=== PATIENT | male | born 1945 | race Caucasian/White ===

== ENCOUNTER 2020-06-25 12:56 | Outpatient (RCR) | payer MEDICARE, OTHER, SELFPAY ==
--- NOTE | 2020-06-25 14:23 | PTOPEVAL ---
Thank you for referring Van Valenzuela to [facility].? The patient is scheduled to be seen for therapy? ____x/week for ___ weeks. Please review, sign, date and return this plan of care UNIQUE. I agree with and certify that the following plan of care is medically necessary. Referring Physician Date Admitting Provider: Attending Provider: PHYSICIAN NOT ON STAFF Referring Provider: *PT Outpatient Evaluation Start: 06/25/20 13:10 Freq: Status: Active Protocol: Document 06/25/20 13:10 DILLON (Rec: 06/25/20 14:12 DILLON [email or web address]) Therapy Assessment Status Assessment Status Assessment Status Evaluation Evaluation Information Problem Diagnosis right shoulder osteoarthritis Onset 06/17/20 Subjective Information Pt. reports that he is unsure Query Text:As Reported By Patient/ when his right shoulder pain Family started. He reports that he has also noted weakness, such as with grabbing milk out of the fridge. He reports that right shoulder pain will wake him at night. He states that he has also started to notice left shoulder pain. He states that he was attending therapy in [place], but was getting little progress. He reports that he has trouble reaching his wallet in his back pocket and has had to put the wallet in his front pocket. He reports that his goal remains to decrease his right shoulder pain. Prior Level of Function Activity Level (Last 3 Months) Occupation retired Hand Dominance Right Activity of Daily Living Ability Independent Indoor/Home Mobility Independent Community Mobility Independent Stairs Ability Independent Functional Cognition (Planning, Shopping Independent , Taking Medications) Cooking Yes Cleaning Yes Laundry Yes Shopping Yes Driving Yes Pain Assessment Timing of Pain Assessment Timing of Pain Assessment Pre-Treatment Pain Scale Pain Scale Used Numeric (1 - 10) Self Report Pain Assessment Right Shoulder(s) Reported Pain Level 2 Pain Frequency Intermittent Lowest Pain Intensity 0 Gr
== END 2020-07-09 23:59 | disposition home or self-care (01) ==
LOC: CHSPT 12:56
PROVIDERS: PCP Family Medicine
DX: M19.011 Primary osteoarthritis, right shoulder (principal)
CPT/HCPCS: 97014; 97110; 97140; 97161; G0283

== ENCOUNTER 2022-03-13 14:23 | Observation (INO) | payer MEDICARE, SELFPAY ==
[2022-03-13] VITALS (36 sets, daily range): BP systolic 106–162; BP diastolic 59–84; PULSE 91–112; RESP 16–30; TEMP 37.1–37.9; O2SAT 93–97; BMI 23.2
--- NOTE | ~2022-03-13 | XR_ITS ---
XR chest 1V portable 03/13/2022 15:21 Indication: Confusion. Procedure: AP portable chest Comparison: 04/13/2009 Findings: There is blunting of the right lateral costophrenic recess which may represent a small effu sameer or pleural thickening. There are surgical changes consistent with partial right lung resection. There are subtle infiltrates in the right midlung which may represent atelectasis/scarring or develop ing pneumonia. Impression: 1: Subtle infiltrates right midlung which may represent atelectasis/scarring versus developing pneumo callum. 2: Possible small right pleural effusion versus pleural thickening. Reviewed, dictated and finalized at location A. Impression: 1: Subtle infiltrates right midlung which may represent atelectasis/scarring ve rsus developing pneumonia. 2: Possible small right pleural effusion versus pleural thickening.
--- NOTE | ~2022-03-13 | CT_ITS ---
EXAMINATION: CT brain wo con DATE: 03/13/2022 15:20 INDICATION: Confusion TECHNIQUE: Computed tomography (CT) of the head was performed without intravenous contrast. The dose- length product was 605.33 mGy-cm. Automated exposure control and iterative reconstruction technique w ere employed. COMPARISON: None FINDINGS: Mild generalized atrophy. There are scattered mild periventricular and subcortical white ma tter changes, most likely related to small vessel ischemic disease (microangiopathy). There is a voip network engineer isabelle right lacunar infarction of the caudate nucleus. There is intracranial atherosclerosis. No ventri culomegaly or midline shift. Basilar cisterns are patent. Mild mucosal thickening of the maxillary, e thmoid and frontal sinuses. Mastoids are pneumatized. No acute intracranial hemorrhage, infarction, m ass or mass effect. Midline sagittal images are unremarkable. IMPRESSION: 1. No acute intracranial abnormality. 2: Chronic right lacunar infarction. 3: Chronic age-related findings. Reviewed, dictated and finalized at location A.
--- NOTE | ~2022-03-13 | CT_ITS ---
EXAMINATION: CT diagnostic chest wo con DATE: 03/13/2022 16:46 INDICATION: Confusion TECHNIQUE: Computed tomography (CT) of the chest was performed without intravenous contrast. The dose -length product was 194.15 mGy-cm. Automated exposure control and iterative reconstruction technique were employed. COMPARISON: Chest x-ray dated 03/13/2022 FINDINGS: Borderline heart size. There is right pleural thickening. No thoracic lymphadenopathy. Ther e is atherosclerosis of the aorta and coronary arteries. There is an enlarged lymph node along the ri ght cardiophrenic angle measuring 1.9 x 0.9 cm. There are surgical changes consistent with partial ri ght lung resection. There are linear infiltrates of the right mid and lower lung, most likely postope rative atelectasis/scarring. No pneumothorax. No endobronchial lesions. Mild thoracic spondylosis. IMPRESSION: 1. No acute cardiopulmonary disease. 2: Postoperative changes consistent with partial right lung resection with residual atelectasis/scar ring of the right mid and lower lung. 3: Mild right pleural thickening. 4: Enlarged right cardiophrenic angle lymph node, likely reactive. Reviewed, dictated and finalized at location A. IMPRESSION: 1. No acute cardiopulmonary disease. 2: Postoperative changes consistent with partial right lung resection with res idual atelectasis/scarring of the right mid and lower lung. 3: Mild right pleural thickening. 4: Enlarged right cardiophrenic angle lymph node, likely reactive.
--- NOTE | 2022-03-13 14:45 | ECG_ITS ---
Measurements Intervals [place] Rate: 96 P: 60 LA: 167 QRS: -5 QRSD: 86 T: 38 QT: 325 QTc: 412 Interpretive Statements SINUS RHYTHM BASELINE ARTIFACT- I, II, III, AVR, AVL, AVF, V3-V4 NORMAL ECG Electronically Signed On 03-13-2022 15:24:18 CDT by Merrick Schilling D.O.
[2022-03-13] MEDS: SODIUM CHLORIDE 0.9% IV 1,000 ML 999 ML IV CONT (15:02)
[2022-03-13 15:08] LABS: Base Excess ABG -2.7 mmol/L (0-2); HCO3 ABG 18.8 mmol/L (23-29); Oxygen Content ABG 17.5 %vol (16.0-22.0); Oxygen Saturation ABG 96.1 % (95-97); Oxyhemoglobin 95.2 % (94-100); PCO2 ABG 24.7 mmHg (35-45); PO2 ABG 81.5 mmHg (75-85)
[2022-03-13 15:13] LABS: Basophils Absolute Auto 0.02 K/mm3 (0.00-0.10); Basophils Percent Auto 0.3 % (0.0-1.0); Eosinophils Absolute Auto 0.27 K/mm3 (0.02-0.50); Eosinophils Percent Auto 3.8 % (1.0-6.0); Hematocrit 35.2 % (37.0-46.0); Immature Granulocyte Absolute 0.02 K/mm3 (0.00-0.00); Immature Granulocyte Percent A 0.3 % (0.0-0.0); Immature Platelet Fraction Pct 5.4 % (1.0-7.0); Lymphocytes Percent Auto 4.2 % (18.0-42.0); Mean Corpuscular HGB Conc 34.1 g/dL (32.0-36.0); Mean Corpuscular Hemoglobin 28.4 pg (27.0-31.0); Mean Corpuscular Volume 83.4 fL (78.0-102.0); Mean Platelet Volume 11.8 fl (8.7-11.0); Monocytes Absolute Auto 0.94 K/mm3 (0.10-0.90); Monocytes Percent Auto 13.1 % (2.0-11.0); Neutrophils Absolute Auto 5.7 K/mm3 (1.7-7.2); Neutrophils Percent Auto 78.3 % (50.0-70.0); Platelet Count Result 85 K/mm3 (150-420); Red Blood Count 4.22 M/mm3 (4.70-6.10); Red Cell Distribution Width 13.2 % (11.6-14.4); White Blood Count 7.2 K/mm3 (4.8-10.8)
[2022-03-13 15:34] LABS: Lactic Acid Reflex 0.4 mmol/L (0.4-2.0)
[2022-03-13 15:35] LABS: Troponin I 22.9 ng/L (0.00-60.4)
[2022-03-13 15:41] LABS: Appearance Urine Clear (Clear); Bilirubin Urine 1+ (Negative); Blood Urine Negative (Negative); Glucose Urine UA Negative (Negative); Ketones Urine Trace (Negative); Leukocyte Esterase Ur Negative (Negative); Nitrate Urine Negative (Negative); Protein Urine 2+ (Negative); Specific Grav Ur 1.015 (1.010-1.020); Urobilinogen Urine >=8.0 mg/dL (0.2-1.0)
[2022-03-13 15:43] LABS: Device ROOM AIR; Ethanol < 3 mg/dL (0-6); Modified Allen's Test Pass; Site Drawn RIGHT RADIAL
[2022-03-13 15:50] LABS: Add Urine Microscopic? YES; Color Urine Dark Orange (Yellow)
[2022-03-13 15:51] LABS: Bacteria Urine 1+ /hpf; RBC Urine 0-2 /hpf (0-2); Squamous Epithelial Cell Urine None seen /hpf (Few); WBC Urine 0-3 /hpf (0-3)
[2022-03-13 15:53] LABS: Amphetamine Screen Urine Negative (Negative); Barbiturate Screen Urine Negative (Negative); Benzodiazepines Screen Urine Negative (Negative); Cannabinoid Screen Urine Positive (Negative); Cocaine Screen Urine Negative (Negative); Methadone Screen Urine Negative (Negative); Opiate Screen Urine Negative (Negative); Phencyclidine Screen Urine Negative (Negative)
--- NOTE | 2022-03-13 18:31 | ED.SOB ---
HPI - SOB/Dyspnea General Chief Complaint: Shortness of Breath/Dyspnea Stated Complaint: ambulance Time Seen by Provider: 03/13/22 14:27 Source: patient, EMS and RN notes reviewed Mode of arrival: EMS Limitations: altered mental status History of Present Illness MD elicited complaint: shortness of breath Onset (ago): hour(s) (4) Context: other (pt was found in his car in the sun, partially dressed and confused.) Timing: constant Severity: moderate Exacerbating factors: nothing Relieving factors: nothing Associated symptoms: nausea/vomiting Treatment prior to arrival: none Related Data Home Medications Medication Instructions Recorded Confirmed furosemide 40 mg tablet 40 mg PO DAILY 03/13/22 03/13/22 Allergies Allergy/AdvReac Type Severity Reaction Status Date / Time No Known Allergies Allergy Verified 03/13/22 14:54 Review of Systems Review of Systems: All systems reviewed & are unremarkable except as noted in HPI and below PMFSH Past Medical History Medical History Confusion state UTI (urinary tract infection) Social History Social History Smoking status: Former smoker Exam Const: General: ill appearing Nutritional Appearance: well nourished Orientation/consciousness: patient oriented x3 Limitations: no limitations HENMT: Head: normal to inspection Ears: external ears normal, TM's normal bilaterally and EAC's normal General nose exam: Normal external nose present and Normal nares present Face and sinus: normal facial exam and sinuses nontender Mouth: Yes Normal oral and palatal mucosa present, Yes lip normal and Yes moist mucous membranes Teeth and gingiva: dentition normal Throat: posterior oropharynx normal Eyes: Conjunctivae: conjunctivae normal Pupils: Equal, round and reactive pupils present EOM: EOMs intact bilaterally Neck: Neck: normal visual inspection Chest: Chest palpation & inspection: normal inspection of the chest Resp: Effort & Inspection: normal respiratory effort Auscultation: clear to auscultation bilaterally Cardio: Rate: regular rate Rhythm: regular rhythm GI: GI Palp: Yes Soft to palpation and No Tenderness to palpation present (GI) Auscultation: normal bowel sounds : General: Yes bladder normal to palpation and Yes no CVA tenderness Back/Spine/Pelvis: Back: no CVA tenderness Skin: General skin exam: normal color Rashes: no rashes Wounds: no wounds Neuro: General: patient oriented x3, moves all extremities, no meningeal signs, no focal motor deficits and CN's II-XI intact bilaterally Cranial nerves: Yes Nystagmus not present Other: Pt was confused. See the nurses notes. Extrem: General: normal to inspection and no pedal edema Psych: Affect: Anxious affect present Attitude: cooperative Course Course Emergency Course: Pt was stable in the ED, confusion remained. Reevaluation(s) Date: 03/13/22 Time: 15:20 Vital Signs Vital signs: Vital Signs Temperature 37.9 C H 03/13/22 14:49 Pulse Rate 102 H 03/13/22 14:49 Respiratory Rate 20 03/13/22 14:49 Blood Pressure 162/84 H 03/13/22 14:49 Pulse Oximetry 94 03/13/22 14:49 Oxygen Delivery Room Air 03/13/22 14:49 Temperature 37.9 C H 03/13/22 14:49 Pulse Rate 100 03/13/22 18:00 Respiratory Rate 20 03/13/22 18:00 Blood Pressure 130/82 03/13/22 17:48 Pulse Oximetry 95 03/13/22 18:00 Oxygen Delivery Room Air 03/13/22 14:57 MDM - SOB/Dyspnea Differential Diagnosis Differential diagnosis: Likely community acquired pneumonia and other (altered mental status.) Medical Records Attestation: I reviewed the patient's medical records. Lab Data Attestation: I reviewed the patient's lab results. Result diagrams: 03/13/22 15:05 Labs: Lab Results 03/13/22 03/13/22 03/13/22 Range/Units 15:05 15:05 15:05 WBC 7.2 (4.8-10.8) K/mm3
--- NOTE | 2022-03-13 20:07 | PC.NURSE ---
Friend Meli [phone] - able to provide patient transportation home
--- NOTE | 2022-03-13 20:19 | PC.NURSE ---
pt admitted for observation into room 207. nurse to nurse report completed b previous shift. pt home medications updated prior to transport to second floor.
[2022-03-13] MEDS: SODIUM CHLORIDE 0.9% IV 1,000 ML 100 ML IV CONT (20:39)
--- NOTE | 2022-03-13 20:40 | ADMGEN ---
This patient, Van Valenzuela, was admitted to 2nd Floor Room 207-2. Patient oriented to hospital policies and general routines including ID bracelet, bed and alarms, pain management, procedures, bathroom and other care routines, personal items, smoking policy, room service/diet, and visiting hours. Information on how to activate the Rapid Response Team has been discussed. Patient is encouraged to report perceived risks to care and to ask questions if he does not understand what he is told or what he should do.
[2022-03-13] MEDS: traZODone HCL 50 MG TABLET 100 MG PO (20:57)
[2022-03-13] MEDS: ATORVASTATIN 40 MG TABLET PO (20:57)
[2022-03-13] MEDS: BRIMONIDINE TARTRATE 0.2% OP SOLN 5 ML BTL 1 DROP EACH EYE (22:06)
[2022-03-14] VITALS: BP 134/61; PULSE 71; RESP 18; TEMP 36.8; O2SAT 97
[2022-03-14 04:00] VITALS: BP 163/64; PULSE 88; RESP 16; TEMP 36.6; O2SAT 98
[2022-03-14 05:45] LABS: Hematocrit 33.3 % (37.0-46.0); Hemoglobin 10.9 g/dL (12.4-15.3); Immature Platelet Fraction Pct 5.6 % (1.0-7.0); Mean Corpuscular HGB Conc 32.7 g/dL (32.0-36.0); Mean Corpuscular Hemoglobin 28.1 pg (27.0-31.0); Mean Corpuscular Volume 85.8 fL (78.0-102.0); Mean Platelet Volume 12.7 fl (8.7-11.0); Platelet Count Result 85 K/mm3 (150-420); Red Blood Count 3.88 M/mm3 (4.70-6.10); Red Cell Distribution Width 13.4 % (11.6-14.4); White Blood Count 5.1 K/mm3 (4.8-10.8)
[2022-03-14 05:52] LABS: Anion Gap 9 mmol/L (8-16); Blood Urea Nitrogen 17 mg/dL (7-18); Calcium 8.2 mg/dL (8.5-10.1); Carbon Dioxide 23 mmol/L (21-32); Chloride 106 mmol/L (98-108); Estimated CRCL calculation 46 ml/min; Estimated Glomerular Filt Rate > 60; Glucose 98 mg/dL (70-99); Osmolality Calculated 287 mOsm/kg (285-295); Potassium 3.5 mmol/L (3.5-5.1); Sodium 138 mmol/L (136-145)
[2022-03-14 06:02] LABS: Total Cells Counted 10
[2022-03-14 06:03] LABS: Band Neutrophils Percent 3 % (0-6); Eosinophils Absolute Manual 0.05 K/mm3 (0.02-0.5); Eosinophils Percent Manual 1 % (1-6); Lymphocytes Absolute Manual 0.56 K/mm3 (1.1-4.5); Lymphocytes Percent Manual 11 % (18-44); Metamyelocytes Percent 1 %; Monocytes Absolute Manual 0.66 K/mm3 (0.1-0.90); Monocytes Percent Manual 13 % (3-9); Neutrophils Absolute Manual 3.77 K/mm3 (1.3-6.7); Neutrophils Percent Manual 71 % (46-73); Platelet Estimate Decreased (Adequate)
[2022-03-14] MEDS: BRIMONIDINE TARTRATE 0.2% OP SOLN 5 ML BTL 1 DROP EACH EYE (06:09)
[2022-03-14] MEDS: SODIUM CHLORIDE 0.9% IV 1,000 ML 100 ML IV CONT (06:32)
--- NOTE | 2022-03-14 06:36 | PC.NURSE ---
Grisel Marinelli NP called to obtain a diet order on patient. Orders received and noted.
[2022-03-14 08:00] VITALS: BP 142/64; PULSE 75; RESP 16; TEMP 36.6; O2SAT 97
[2022-03-14] MEDS: hydrALAZINE HCL 25 MG TABLET PO (08:53)
--- NOTE | 2022-03-14 10:25 | PM.SD2 ---
Same Day Admit/Disch: HPI History of Present Illness Chief complaint: ENCEPHELOPATHY UTI Narrative: Van Valenzuela is a 77 year old male [facility] Past Medical History Medical History Confusion state UTI (urinary tract infection) Social History Social History Smoking packs per day: 1 Smoking cigarettes per day: 20.0 Years smoked: 20 Smoking pack-years: 20.00 Smoking status: Former smoker Tobacco type: cigarettes Alcohol intake: never Substance use: current Substance use type: marijuana Other substance usage details: uses marijuana for glaucoma Last use: more than week ago Spiritual care concerns: No Same Day Admit/Disch: Med Pre-admit Medications Home Medications Medication Instructions Recorded Confirmed Type Lactobacillus acidophilus See Rx Instructions .Route .COMPLEX 03/13/22 03/13/22 History atorvastatin 40 mg tablet 40 mg PO HS 03/13/22 03/13/22 History brimonidine 0.2 % eye drops 1 drp EACH EYE Q8H 03/13/22 03/13/22 History budesonide 160 mcg-glycopyr 9 2 inh inhalation BID 03/13/22 03/13/22 History mcg-formot 4.8 mcg/actuation HFA inhaler (Breztri Aerosphere) calcium polycarbophil 625 mg tablet 1,250 mg PO DAILY 03/13/22 03/13/22 History diclofenac sodium 1 % topical gel 2 g topical QID 03/13/22 03/13/22 History dorzolamide-timolol (PF) 2 %-0.5 % 1 drp ophthalmic (eye) BID 03/13/22 03/13/22 History eye drops in a dropperette furosemide 40 mg tablet 40 mg PO DAILY 03/13/22 03/13/22 History hydralazine 25 25 tablet PO TID 03/13/22 03/13/22 History mg-hydrochlorothiazide 25 mg tablet hydrophilic cream See Rx Instructions .Route .COMPLEX 03/13/22 03/13/22 History ketorolac 0.5 % eye drops in a 1 drp EACH EYE Q6H 03/13/22 03/13/22 History dropperette latanoprost 0.005 % eye drops 1 drp EACH EYE QPM 05/29/22 05/29/22 History lisinopril 40 mg tablet 40 mg PO DAILY 03/13/22 03/13/22 History omega-3 fatty acids 1,000 mg PO DAILY 03/13/22 03/13/22 History polyvinyl alcohol 1.4 % eye drops 1 drp EACH EYE QID 03/13/22 03/13/22 History trazodone 100 mg tablet 100 mg PO HS PRN Sleep 03/13/22 03/13/22 History hydralazine 25 mg tablet 25 mg PO BID #60 tabs 03/14/22 Rx nitrofurantoin 100 mg PO Q12H 5 days #10 caps 03/14/22 Rx monohydrate/macrocrystals 100 mg capsule (Macrobid) Exam Narrative: GENERAL Ill-appearing, well-nourished, and in no acute distress. HEAD:Normocephalic, atraumatic. EYES: PERRLA and EOMI. ENT: Nares clear, no rhinorrhea or epistaxis. Mucous membranes moist. NECK: Supple. CHEST: Clear to diminished on left side auscultation. No respiratory distress. HEART: Regular rate and rhythm. Normal peripheral pulses. ABDOMEN: Soft, nontender,round, normal active bowel sounds. EXTREMITIES: Normal range of motion. No edema. SKIN: Warm, dry, no rash. NEURO: No focal deficits. Alert and oriented x3. DS: Data Data Completed and Pending Labs on day of discharge: Labs from last 24 hours 03/14/22 03/14/22 03/13/22 05:37 05:37 15:33 WBC 5.1 RBC 3.88 L Hgb 10.9 L Hct 33.3 L MCV 85.8 MCH 28.1 MCHC 32.7 RDW 13.4 Plt Count 85 L MPV 12.7 H Immature Gran % (Auto) Not Reportable Neut % (Auto) Not Reportable Lymph % (Auto) Not Reportable [place] % (Auto) Not Reportable Eos % (Auto) Not Reportable Baso % (Auto) Not Reportable Lymph # (Auto) Not Reportable [place] # (Auto) Not Reportable Eos # (Auto) Not Reportable Baso # (Auto) Not Reportable Abs Immat Gran (auto) Not Reportable Absolute Neuts (auto) Not Reportable Absolute Nucleated RBC Not Reportable Total Counted 10 Neutrophils % (Manual) 71 Band Neutrophils % 3 Lymphocytes % (Manual) 11 L Monocytes % (Manual) 13 H Eosinophils % (Manual) 1 Metamyelocytes % 1 Nucleated RBC % Not Reportable Abs Ne
[2022-03-14 12:00] VITALS: BP 145/70; PULSE 77; RESP 16; TEMP 36.6; O2SAT 96
--- NOTE | 2022-03-14 15:00 | PC.NURSE ---
Pt discharged to home. VSS, A/O x 3. Discharge instructions given to pt. Medications reviewed, follow up appointment with Dr. Whit Matute discussed, pt to call in AM.
--- NOTE | 2022-03-16 09:07 | PC.NURSE ---
Unable to contact for discharge call back.
== END 2022-03-14 14:50 | disposition home or self-care (01) ==
LOC: CHSED 18:36 → CHS2ND 18:45
PROVIDERS: Nurse Practitioner Family; Admitting Provider Internal Medicine; Emergency Provider Emergency Medicine; PCP Family Medicine; Visit Provider Internal Medicine
DX: N39.0 Urinary tract infection, site not specified (principal); F44.89 Other dissociative and conversion disorders; C61 Malignant neoplasm of prostate; Z87.891 Personal history of nicotine dependence; Z79.899 Other long term (current) drug therapy
CPT/HCPCS: 36415; 36600; 70450; 71045; 71250; 80048; 80307; 81001; 82805; 83605; 84484; 85025; 85055; 93005; 96361; 96365; 99285; A9270; G0378; J0696; J7030

== ENCOUNTER 2022-06-14 15:15 | Outpatient (RCR) | payer MEDICARE, SELFPAY ==
--- NOTE | 2022-06-14 14:49 | PTOPEVAL1 ---
Evaluation Information Assessment Status Evaluation Diagnosis Right Shoulder Pain Subjective Information Pt reports he has had right shoulder pain for several years. He had an injection both in 2020 and Spring 2021. He states the first injection helped for about a year but the second only helped for a few days. He is having difficulty lifting his right arm and lowering it back down. [place] and he was given exercises to do on his own. He reports he did not do the exercises on his own because he did not have the equipment so, his primary care doctor recommended he come to a local physical therapy provider. He notes clicking in his shoulder when reaching overhead and pain as he lowers it down. He is unable to perform yard work and has difficulty with lifting household ite. He is also unable to lay on his right side. He is retired ad right hand dominant. Reported Pain Level Pain Score 7: Self Report Assessment PT Clinical Summary Van Valenzuela presents for evaluation and treatment of right shoulder pain. He has difficulty reaching overhead, lifting, laying on the right side, and performing yard work. He objectively demonstrates decreased and painful right shoulder ROM, decreased right shoulder strength, poor posture, and positive special tests consistent with shoulder impingement and tendonitis. He will benefit from skilled PT to address these physical and functional limitations. Plan of Care Interventions Hot Pack/Cold Pack,Therapeutic Exercise PT Services Indicated Yes Treatment Frequency and 3 times a week for 12 visits Duration These treatments will address the objective and functional deficits as defined above. The patient will be advanced safely and appropriately in order for the patient to progress towards his/her prior level of function. Additional exercises will be introduced and as well as a comprehensive home exercise program upon discharge, if needed, ?to ensure carryover of functional gains achieved in the clinic. This treatment plan has been reviewed and agreement upon by the patient.
== END 2022-07-20 23:59 | disposition home or self-care (01) ==
LOC: CHSPT 15:15
PROVIDERS: PCP Family Medicine; Visit Provider Family Medicine
DX: M25.511 Pain in right shoulder (principal)
CPT/HCPCS: 97110; 97140; 97161

== ENCOUNTER 2022-06-17 07:46 | Outpatient (CLI) | payer MEDICARE, SELFPAY ==
--- NOTE | ~2022-06-17 | CT_ITS ---
EXAMINATION: CT chest abdomen pelvis w con DATE: 06/17/2022 08:52 INDICATION: Shortness of breath. Cancer of the right lung. TECHNIQUE: Computed tomography (CT) of the chest, abdomen, and pelvis was performed with 100 CC Omnip aque 350 intravenous contrast. Automated exposure control and iterative reconstruction technique were employed. Exam dose: 460.73 mGy-cm total exam DLP. COMPARISON: 03/13/2022 CT chest 02/14/2011 CT chest abdomen pelvis FINDINGS: CHEST CT: Normal heart size. Coronary artery calcifications. There is aortic and great vessel calcification but no thoracic aortic aneurysm or dissection. No hilar or mediastinal mass lesion or lymphadenopathy. Status post right partial pneumonectomy. No pulmonary mass lesion or pulmonary infiltrate or consolid ation is detected. ABDOMEN/PELVIS CT: There is diffuse hepatic steatosis. No hepatic, splenic, pancreatic or adrenal space-occupying mass l esion is evident. Occasional right renal cysts including one larger cyst measuring up to 3.5 cm dimension. Severe left renal atrophy with numerous left renal cysts, the largest approximately 3 cm. No urinary tract calculus or hydroureteronephrosis. There is atherosclerotic calcification but normal caliber of the abdominal aorta. There is calcificat ion at the origins of the celiac, superior mesenteric, renal arteries. No intraperitoneal or retroper itoneal or pelvic mass lesion or adenopathy or ascites is detected. Prostate enlargement and mild calcification. There is moderate diffuse thickening of the urinary blad eli wall. Normal appendix. Mild colonic diverticulosis; no CT evidence of diverticulitis. No bowel obstruction, bowel wall thickening, pneumatosis or intraperitoneal free air is detected. Severe degenerative disease in the lower cervical spine. Diffuse idiopathic skeletal hyperostosis of the thoracic spine. There is mild degenerative change of the lumbar spine including degenerative cedillo ges apophyseal joints with associated minimal grade 1 anterolisthesis at L4-5. No suspicious osteolytic or osteoblastic lesions are noted. IMPRESSION: Status post right partial pneumonectomy for lung cancer; no recurrent or metastatic dise ase is noted Hepatic steatosis Severe left renal atrophy Bilateral renal cysts Prostate enlargement Normal appendix Mild colonic diverticulosis; no CT evidence of diverticulitis Reviewed, dictated and finalized at Location [facility]. Reviewed, dictated and finalized at location B. IMPRESSION: Status post right partial pneumonectomy for lung cancer; no recurr ent or metastatic disease is noted Hepatic steatosis Severe left renal atrophy Bilateral renal cysts Prostate enlargement Normal appendix Mild colonic diverticulosis; no CT evidence of diverticulitis
[2022-06-17 08:11] LABS: Estimated Glomerular Filt Rate 58
== END 2022-06-17 07:47 | disposition home or self-care (01) ==
LOC: CHSIMG 07:47
PROVIDERS: PCP Family Medicine
DX: C34.91 Malignant neoplasm of unspecified part of right bronchus or lung (principal)
CPT/HCPCS: 71260; 74177; Q9967

== ENCOUNTER 2022-06-24 11:48 | Outpatient (CLI) | payer MEDICARE, SELFPAY ==
[2022-06-24 12:13] LABS: Immature Reticulocyte Fraction 5.4 % (2.0-16.52); Reticulocyte Hemoglobin Conten 33.7 pg (28.0-35.0); Reticulocyte Percent 1.05 % (0.50-1.50); Reticulocytes Absolute 0.05 M/mm3 (0.02-0.1)
== END 2022-06-24 11:49 | disposition home or self-care (01) ==
LOC: CHSLAB 11:52
PROVIDERS: PCP Family Medicine; Visit Provider Internal Medicine Hematology & Oncology
DX: D69.6 Thrombocytopenia, unspecified (principal)
CPT/HCPCS: 36415; 82668; 85046; 85240; 85290

== ENCOUNTER 2024-05-10 13:25 | Emergency (ER) | payer MEDICARE, SELFPAY ==
--- NOTE | ~2024-05-10 | CT_ITS ---
CT brain wo con Ordering provider: Hua Camargo MD History: 79 years Male with . Fall- Struck top of head, headache/cervical pain . Comparison: March 13, 2022 Technique: CT of the head without contrast. Radiation reduction technique utilized. DLP is 605.33 mGy-cm. FINDINGS: BRAIN PARENCHYMA AND CSF SPACES: Mild leukoaraiosis and diffuse cortical atrophy. Mild atheromatous d isease. No midline shift, mass effect or hemorrhage. The brain parenchyma and CSF spaces are otherwi se normal. VISUALIZED PARANASAL SINUSES: Left maxillary sinus disease. MASTOIDS: Well aerated. BONES: The bones appear intact. SOFT TISSUES: Visualized nasopharynx is normal. Superficial soft tissues are normal. IMPRESSION: No acute intracranial findings. Reviewed, dictated and finalized at location A.
--- NOTE | ~2024-05-10 | XR_ITS ---
XR shoulder RT min 2V Ordering provider: Hua Camargo MD History: . Fall- Rt. shoulder pain . Comparison: None. FINDINGS: BONES: No acute fracture or dislocation. Degenerative changes seen at the insertion of the supraspina tous tendon. JOINT SPACES: The acromioclavicular joint shows osteoarthritic changes. The glenohumeral joint is brittany rowed and shows osteoarthritic changes. SOFT TISSUES: Normal. IMPRESSION: No acute osseous abnormality right shoulder. Reviewed, dictated and finalized at location A.
--- NOTE | ~2024-05-10 | CT_ITS ---
CT cervical spine wo con Ordering provider: Hua Camargo MD History: . Fall- Struck top of head, headache/cervical pain . Comparison: None. Technique: CT of the cervical spine was performed without contrast. Sagittal and coronal reformatted images were also obtained and reviewed. Automated exposure control and iterative reconstruction claudia hnique were employed. The dose-length product was 271.09 mGy-cm. FINDINGS: VERTEBRAE: No subluxation or acute fracture. The occipital condyles are intact. DISC SPACES: Narrowing of the disc spaces C5-C6, C6-C7, C7-T1 and T1-T2. Multilevel facet joint disea se. Multilevel uncovertebral joint osteoarthritic changes. Narrowing of the right intervertebral foramen at C2-C3. Bilateral narrowing from C3-C4. Narrowing of the foramina at the level of C5-C6 and C6-C7. PARASPINOUS SOFT TISSUES: Normal. IMPRESSION: No acute osseous abnormality cervical spine. Reviewed, dictated and finalized at location A.
[2024-05-10 13:25] VITALS: BP 146/67; PULSE 74; RESP 18; TEMP 37.3; O2SAT 97
[2024-05-10 14:00] VITALS: BP 152/66; PULSE 63; RESP 17; O2SAT 99
--- NOTE | 2024-05-10 14:15 | ED.FALL ---
HPI - Fall General Chief Complaint: Fall Stated Complaint: fall; right elbow skin tear Time Seen by Provider: 05/10/24 13:33 Source: patient Mode of arrival: ambulatory Limitations: no limitations History of Present Illness HPI Narrative: Patient is an 79-year-old male with a fall in the front yd ground level. He fell prior to arrival. He injured his head and neck. He was having near-syncope after having dizziness from some dehydration today and getting his eyes dilated at the eye doctor. MD complaint: fall Onset (ago): hour(s) (1) Fall from: standing Fall witnessed: yes, by family Place fall occurred: street Loss of consciousness: unsure Length of LOC: second(s) Prolonged down time: no Symptoms prior to fall: lightheadedness and dizziness Context: other ( Patient got his eyes dilated this morning and was in a car that was hot) Location of injury: head, neck and other ( right shoulder) Location of injury - extremities: Right: shoulder Severity: mild Severity scale (1-10): 2 Quality: sharp and throbbing Associated symptoms (after fall): neck pain Related Data Home Medications Medication Instructions Recorded Confirmed Lactobacillus acidophilus See Rx Instructions .Route .COMPLEX 03/13/22 03/13/22 atorvastatin 40 mg tablet 40 mg PO HS 03/13/22 03/13/22 brimonidine 0.2 % eye drops 1 drp EACH EYE Q8H 03/13/22 03/13/22 budesonide 160 mcg-glycopyr 9 2 inh inhalation BID 03/13/22 03/13/22 mcg-formot 4.8 mcg/actuation HFA inhaler (Breztri Aerosphere) calcium polycarbophil 625 mg tablet 1,250 mg PO DAILY 03/13/22 03/13/22 diclofenac sodium 1 % topical gel 2 g topical QID 03/13/22 03/13/22 dorzolamide-timolol (PF) 2 %-0.5 % 1 drp ophthalmic (eye) BID 03/13/22 03/13/22 eye drops in a dropperette furosemide 40 mg tablet 40 mg PO DAILY 03/13/22 03/13/22 hydrophilic cream See Rx Instructions .Route .COMPLEX 03/13/22 03/13/22 ketorolac 0.5 % eye drops in a 1 drp EACH EYE Q6H 03/13/22 03/13/22 dropperette latanoprost 0.005 % eye drops 1 drp EACH EYE QPM 03/13/22 03/13/22 lisinopril 40 mg tablet 40 mg PO DAILY 03/13/22 03/13/22 omega-3 fatty acids 1,000 mg PO DAILY 03/13/22 03/13/22 polyvinyl alcohol 1.4 % eye drops 1 drp EACH EYE QID 03/13/22 03/13/22 trazodone 100 mg tablet 100 mg PO HS PRN Sleep 03/13/22 03/13/22 Allergies Allergy/AdvReac Type Severity Reaction Status Date / Time No Known Allergies Allergy Verified 05/10/24 13:34 Review of Systems Review of Systems: All systems reviewed & are unremarkable except as noted in HPI and below Constitutional: Constitutional: Reports no additional constitutional complaints Eyes: Eyes: Reports no additional eye complaints ENT: Reports system reviewed and no additional complaints, except as documented Cardiovascular: Cardiovascular: Reports no additional cardiovascular complaints Respiratory: Respiratory: Reports no additional respiratory complaints Gastrointestinal: Gastrointestinal: Reports no additional gastrointestinal complaints Genitourinary: Genitourinary: Reports no additional male genitourinary complaints Musculoskeletal: Musculoskeletal: Reports no additional musculoskeletal complaints Integumentary/Breasts: Skin/Breast: Reports system reviewed and no additional complaints, except as docu Neurologic: Reports system reviewed and no additional complaints, except as documented Psychiatric: Psychiatric: Reports no additional psychiatric complaints Endocrine: Endocrine: Reports no additional endocrine complaints Hematologic/Lymphatic: Hematologic/Lymphatic: Reports no additional hematologic/lymphatic complaints Allergic/Immunologic: Allergic/Immunologic: Reports no additional allergic/immunologic complaints PMF Past Medical History Medical History Confusion state UTI (urinary tract infection) Social History Social History Smoking packs pe
[2024-05-10 14:30] VITALS: BP 156/69; PULSE 59; RESP 17; O2SAT 98
[2024-05-10 15:00] VITALS: BP 149/79; PULSE 53; RESP 16; O2SAT 100
[2024-05-10 15:15] VITALS: BP 156/66; PULSE 58; RESP 16; TEMP 37.2; O2SAT 100
== END 2024-05-10 15:15 | disposition home or self-care (01) ==
PROVIDERS: Emergency Provider Emergency Medicine; PCP Family Medicine
DX: R55 Syncope and collapse (principal); S09.90XA Unspecified injury of head, initial encounter; Z87.891 Personal history of nicotine dependence; W18.30XA Fall on same level, unspecified, initial encounter; Y92.007 Garden or yard of unspecified non-institutional (private) residence as the place of occurrence of the external cause
CPT/HCPCS: 70450; 72125; 73030; 99284

== ENCOUNTER 2024-07-11 00:49 | Emergency (ER) | payer MEDICARE, SELFPAY ==
[2024-07-11] VITALS (11 sets, daily range): BP systolic 136–166; BP diastolic 49–102; PULSE 63–89; RESP 8–26; TEMP 36.8–37.4; O2SAT 95–99
--- NOTE | ~2024-07-11 | CT_ITS ---
EXAMINATION: CT abdomen pelvis w con DATE: 07/11/2024 02:12 INDICATION: Nausea TECHNIQUE: Computed tomography (CT) of the abdomen and pelvis was performed with 100 mL Omnipaque-350 intravenous contrast. Automated exposure control and iterative reconstruction technique were employe d. The dose-length product was 443.26 mGy-cm. COMPARISON: 06/17/2022 FINDINGS: Postoperative change of prior partial right pneumonectomy with suture line along the right middle and lower lobes. Chronic small right pleural effusion. Heart size is normal. No pericardial effusion. Mu ltiple calcified gallstones in the dependent gallbladder which is distended to 4.1 cm maximal diamete r but without evident gallbladder wall thickening or pericholecystic inflammatory stranding to sugges t acute cholecystitis. Liver, pancreas and bilateral adrenal glands are normal. Mass effect mild sple nomegaly measuring 15 cm in craniocaudal length. There are multiple bilateral renal cysts measuring u p to 4.0 cm in maximal diameter at the lower pole of the right kidney. There is severe left renal atr ophy. Bowels including the appendix are normal. Bladder is normal. Prostatomegaly. No free intraperit renee gas or fluid. No pathologically enlarged There is calcified atherosclerosis of the aorta and ma ny of the other arteries. lymphadenopathy. Mild lumbar and lower thoracic spondylosis with bridging o steophytes at multiple levels consistent with diffuse idiopathic skeletal hyperostosis (DISH). IMPRESSION: 1. No acute intra-abdominal/pelvic process. 2. Cholelithiasis. 3. Severe left renal atrophy. 4. Prostatomegaly. 5. Chronic small right pleural effusion with change of prior partial right pneumonectomy. Reviewed, dictated and finalized at location A. IMPRESSION: 1. No acute intra-abdominal/pelvic process. 2. Cholelithiasis. 3. Severe left renal atrophy. 4. Prostatomegaly. 5. Chronic small right pleural effusion with change of prior partial right pneu monectomy.
--- NOTE | 2024-07-11 00:58 | ECG_ITS ---
Test Date: 2024-07-11 01:25:53 Measurements Intervals [place] Rate: 54 P: 50 ID: [id number] QRS: 22 QRSD: 84 T: 60 QT: 410 QTc: 392 Interpretive Statements SINUS BRADYCARDIA WITH OCCASIONAL SUPRAVENTRICULAR PREMATURE COMPLEXES BASELINE ARTIFACT- I, II, III, AVR, AVL, AVF BORDERLINE ECG No previous ECG available for comparison Electronically Signed On 07-11-2024 05:37:00 CDT by Merrick Schilling D.O.
--- NOTE | 2024-07-11 00:58 | ED.ABDPAIN ---
HPI - Abdominal Pain General Chief Complaint: Nausea/Vomiting/Diarrhea Stated Complaint: abd pain nausea Time Seen by Provider: 07/11/24 00:57 Source: patient and EMS Mode of arrival: EMS Limitations: no limitations History of Present Illness HPI narrative: 79 YEARS OLD WHITE MALE CAME TO THE ED BY AMBULANCE COMPLAINING OF ABDOMINAL PAIN STARTED 6-7 HOURS AGO ASSOCIATED WITH NAUSEA AND VOMITING, POSSIBLE VOMITING BLOOD. PATIENT DENIES ANY FEVER, CHILLS OR HISTORY OF ABDOMINAL SURGERY. PATIENT DENIES AGGRAVATING OR RELIEVING FACTORS. Related Data Home Medications Medication Instructions Recorded Confirmed Lactobacillus acidophilus See Rx Instructions .Route .COMPLEX 03/13/22 03/13/22 atorvastatin 40 mg tablet 40 mg PO HS 03/13/22 03/13/22 brimonidine 0.2 % eye drops 1 drp EACH EYE Q8H 03/13/22 03/13/22 budesonide 160 mcg-glycopyr 9 2 inh inhalation BID 03/13/22 03/13/22 mcg-formot 4.8 mcg/actuation HFA inhaler (Breztri Aerosphere) calcium polycarbophil 625 mg tablet 1,250 mg PO DAILY 03/13/22 03/13/22 diclofenac sodium 1 % topical gel 2 g topical QID 03/13/22 03/13/22 dorzolamide-timolol (PF) 2 %-0.5 % 1 drp ophthalmic (eye) BID 03/13/22 03/13/22 eye drops in a dropperette furosemide 40 mg tablet 40 mg PO DAILY 03/13/22 03/13/22 hydrophilic cream See Rx Instructions .Route .COMPLEX 03/13/22 03/13/22 ketorolac 0.5 % eye drops in a 1 drp EACH EYE Q6H 03/13/22 03/13/22 dropperette latanoprost 0.005 % eye drops 1 drp EACH EYE QPM 03/13/22 03/13/22 lisinopril 40 mg tablet 40 mg PO DAILY 03/13/22 03/13/22 omega-3 fatty acids 1,000 mg PO DAILY 03/13/22 03/13/22 polyvinyl alcohol 1.4 % eye drops 1 drp EACH EYE QID 03/13/22 03/13/22 trazodone 100 mg tablet 100 mg PO HS PRN Sleep 03/13/22 03/13/22 Allergies Allergy/AdvReac Type Severity Reaction Status Date / Time No Known Allergies Allergy Verified 07/11/24 00:55 Review of Systems Review of Systems: All systems reviewed & are unremarkable except as noted in HPI and below PMFSH Past Medical History Medical History Confusion state UTI (urinary tract infection) Social History Social History Smoking packs per day: 1 Smoking cigarettes per day: 20.0 Years smoked: 20 Smoking pack-years: 20.00 Smoking status: Former smoker Tobacco type: cigarettes Alcohol intake: never Substance use: current Substance use type: marijuana Other substance usage details: uses marijuana for glaucoma Last use: more than week ago Spiritual care concerns: No Exam Narrative: GENERAL APPEARANCE: WELL-DEVELOPED, WELL-NOURISHED SKIN: NORMAL COLOR HEAD: NORMOCEPHALIC, NONTRAUMATIC EYES: CLEAR CONJUNCTIVA ENT: OROPHARYNX NORMAL, EARS NORMAL, NOSE NORMAL NECK: SUPPLE, NONTENDER CHEST AND RESPIRATORY: AIRWAY PATENT, NO RESPIRATORY DISTRESS, NO ACCESSORY MUSCLE USE HEART: REGULAR RATE/RHYTHM ABDOMEN: SOFT, DIFFUSE ABDOMINAL TENDERNESS, GUARDING, NO REBOUND, NO ORGANOMEGALY, QUIET BOWEL SOUNDS VASCULAR: NORMAL PERIPHERAL PULSES, NORMAL CAPILLARY REFILL. MUSCULOSKELETAL: NORMAL RANGE OF MOTION, NONTENDER BACK NEUROLOGIC: ALERT AND ORIENTED ?3, AVIONICS INTEGRATION ENGINEER IS NORMAL TESTED, NO GROSS MOTOR DEFICIT Course Vital Signs Vital signs: Vital Signs Pulse Rate 66 07/11/24 00:56 Respiratory Rate 12 07/11/24 00:56 Blood Pressure 166/73 H 07/11/24 00:56 Pulse Oximetry 96 07/11/24 00:56 Oxygen Delivery Room Air 07/11/24 00:56 Temperature 36.8 C 07/11/24 00:57 Pulse Rate 81 07/11/24 03:01 Respiratory Rate 8 L 07/11/24 03:01 Blood Pressure 136/60 07/11/24 03:01
--- NOTE | 2024-07-11 01:03 | PC.NURSE ---
EKG in progress
--- NOTE | 2024-07-11 01:04 | PC.NURSE ---
Dr Bajwa at the bedside
--- NOTE | 2024-07-11 01:04 | PC.NURSE ---
Regla with lab at the bedside
[2024-07-11] MEDS: SODIUM CHLORIDE 0.9% IV 1,000 ML 999 ML IV CONT (01:17)
[2024-07-11] MEDS: ONDANSETRON INJ 4 MG/2 ML VIAL IV PUSH (01:18)
--- NOTE | 2024-07-11 01:18 | PC.NURSE ---
patient does not want morphine at this time. dr carbajal notified. morphine returned to [facility]
[2024-07-11 01:26] LABS: Basophils Absolute Auto 0.01 K/mm3 (0.00-0.10); Basophils Percent Auto 0.1 % (0.0-1.0); Eosinophils Absolute Auto 0.02 K/mm3 (0.02-0.50); Eosinophils Percent Auto 0.2 % (1.0-6.0); Hemoglobin 12.8 g/dL (12.4-15.3); Immature Granulocyte Absolute 0.03 K/mm3 (0.00-0.00); Immature Granulocyte Percent A 0.3 % (0.0-0.0); Lymphocytes Absolute Auto 0.62 K/mm3 (1.10-4.50); Lymphocytes Percent Auto 6.2 % (18.0-42.0); Mean Corpuscular HGB Conc 33.7 g/dL (32-36); Mean Corpuscular Hemoglobin 28.8 pg (27.0-31.0); Mean Corpuscular Volume 85.4 fL (78.0-102.0); Mean Platelet Volume 12.8 fl (8.7-11.0); Monocytes Absolute Auto 0.76 K/mm3 (0.10-0.90); Monocytes Percent Auto 7.6 % (2.0-11.0); Neutrophils Absolute Auto 8.54 K/mm3 (1.70-7.20); Neutrophils Percent Auto 85.6 % (50.0-70.0); Platelet Count Result 86 K/mm3 (150-420); Red Blood Count 4.45 M/mm3 (4.70-6.10); Red Cell Distribution Width 13.2 % (11.6-14.4)
[2024-07-11 01:37] LABS: Occult Blood Negative (Negative)
[2024-07-11 01:38] LABS: Partial Thromboplastin Time 50.3 Sec (23.9-30.70); Prothrombin Time 10.9 Seconds (9.50-12.1)
[2024-07-11 01:49] LABS: Alanine Aminotransferase 23 U/L (16-63); Albumin Level 3.7 g/dL (3.4-5.0); Alkaline Phosphatase 100 U/L (46-116); Anion Gap 8 mmol/L (4-12); Aspartate Amino Transferase 21 U/L (15-37); Bilirubin,Total 1.9 mg/dL (0.00-1.00); Blood Urea Nitrogen 16 mg/dL (7-18); Calcium 8.9 mg/dL (8.5-10.1); Carbon Dioxide 28 mmol/L (21-32); Chloride 100 mmol/L (98-108); Estimated CRCL calculation 39 ml/min; Estimated Glomerular Filt Rate 59; Glucose 129 mg/dL (70-99); Lipase 24 U/L (16-77); Osmolality Calculated 285 mOsm/kg (285-295); Potassium 3.6 mmol/L (3.5-5.1); Sodium 136 mmol/L (136-145); Total Protein 7.2 g/dL (6.4-8.2)
[2024-07-11 01:50] LABS: Troponin I 11.9 ng/L (0.00-60.4)
[2024-07-11 01:54] LABS: Lactic Acid Reflex 1.2 mmol/L (0.4-2.0)
--- NOTE | 2024-07-11 01:55 | PC.NURSE ---
patient being transported to ct via stretcher.
[2024-07-11 02:31] LABS: Add Urine Microscopic? NO; Appearance Urine Clear (Clear); Bilirubin Urine Negative (Negative); Blood Urine Negative (Negative); Color Urine Light Yellow (Yellow); Glucose Urine UA Negative (Negative); Ketones Urine Negative (Negative); Leukocyte Esterase Ur Negative LEU/UL (Negative); Nitrate Urine Negative (Negative); Protein Urine Negative (Negative); Urobilinogen Urine 0.2 mg/dL (0.2-1.0); pH Urine 7.5 (5.0-8.0)
--- NOTE | 2024-07-11 02:49 | PC.NURSE ---
patient is resting quietly on stretcher. call light in reach. waiting on ct results
--- NOTE | 2024-07-11 04:00 | PC.NURSE ---
patient is resting quietly on stretcher. call light in reach. waiting on ct results.
--- NOTE | 2024-07-11 04:42 | PC.NURSE ---
Dr Bajwa at the bedside
== END 2024-07-11 05:08 | disposition home or self-care (01) ==
PROVIDERS: Emergency Provider Emergency Medicine; PCP Family Medicine
DX: R10.9 Unspecified abdominal pain (principal); Z87.891 Personal history of nicotine dependence
CPT/HCPCS: 36415; 74177; 80053; 81003; 82272; 83605; 83690; 84484; 85025; 85055; 85610; 85730; 93005; 96361; 96374; 99284; J2405; J7030; Q9967

== ENCOUNTER 2024-07-18 22:16 | Emergency (ER) | payer MEDICARE, SELFPAY ==
[2024-07-18 22:18] VITALS: BP 130/61; PULSE 77; RESP 18; TEMP 36.2; O2SAT 98
--- NOTE | 2024-07-18 22:45 | ED.URI ---
HPI - URI/Sore Throat General Chief Complaint: Upper Respiratory Infection Stated Complaint: weakness Time Seen by Provider: 07/18/24 22:22 Source: patient and EMS Mode of arrival: EMS Limitations: no limitations History of Present Illness HPI Narrative: this is an 79-year-old male presents via EMS with some mild cough with no congestion no fever chills no chest pain no shortness of breath no audible wheezing no abdominal pain no nausea vomiting no diarrhea constipation. Patient was in the ER approximately a week ago for similar our evaluation. MD elicited complaint: cough Onset (ago): day(s) Consistency: intermittent Severity: mild Description of mucous: clear Able to tolerate fluids by mouth: No Exacerbating factors: nothing Related Data Home Medications Medication Instructions Recorded Confirmed Lactobacillus acidophilus See Rx Instructions .Route .COMPLEX 03/13/22 07/18/24 atorvastatin 40 mg tablet 40 mg PO HS 03/13/22 07/18/24 brimonidine 0.2 % eye drops 1 drp EACH EYE Q8H 03/13/22 07/18/24 budesonide 160 mcg-glycopyr 9 2 inh inhalation BID 03/13/22 07/18/24 mcg-formot 4.8 mcg/actuation HFA inhaler (Breztri Aerosphere) calcium polycarbophil 625 mg tablet 1,250 mg PO DAILY 03/13/22 07/18/24 diclofenac sodium 1 % topical gel 2 g topical QID 03/13/22 07/18/24 dorzolamide-timolol (PF) 2 %-0.5 % 1 drp ophthalmic (eye) BID 03/13/22 07/18/24 eye drops in a dropperette furosemide 40 mg tablet 40 mg PO DAILY 03/13/22 07/18/24 hydrophilic cream See Rx Instructions .Route .COMPLEX 03/13/22 07/18/24 ketorolac 0.5 % eye drops in a 1 drp EACH EYE Q6H 03/13/22 07/18/24 dropperette latanoprost 0.005 % eye drops 1 drp EACH EYE QPM 03/13/22 07/18/24 lisinopril 40 mg tablet 40 mg PO DAILY 03/13/22 07/18/24 omega-3 fatty acids 1,000 mg PO DAILY 03/13/22 07/18/24 polyvinyl alcohol 1.4 % eye drops 1 drp EACH EYE QID 03/13/22 07/18/24 trazodone 100 mg tablet 100 mg PO HS PRN Sleep 03/13/22 07/18/24 Allergies Allergy/AdvReac Type Severity Reaction Status Date / Time No Known Allergies Allergy Verified 07/18/24 22:28 Review of Systems Review of Systems: All systems reviewed & are unremarkable except as noted in HPI and below PMFSH Past Medical History Medical History Confusion state UTI (urinary tract infection) Social History Social History Smoking packs per day: 1 Smoking cigarettes per day: 20.0 Years smoked: 20 Smoking pack-years: 20.00 Smoking status: Former smoker Tobacco type: cigarettes Alcohol intake: never Substance use: current Substance use type: marijuana Other substance usage details: uses marijuana for glaucoma Last use: more than week ago Spiritual care concerns: No Exam Const: General: healthy appearing, no acute distress and alert Nutritional Appearance: well nourished Orientation/consciousness: patient oriented x3 Limitations: no limitations HENMT: Head: normal to inspection Eyes: Conjunctivae: conjunctivae normal Pupils: Equal, round and reactive pupils present Neck: Neck: normal visual inspection Chest: Chest palpation & inspection: normal inspection of the chest Resp: Effort & Inspection: normal respiratory effort Auscultation: clear to auscultation bilaterally Cardio: Rate: regular rate Rhythm: regular rhythm GI: GI Palp: Yes Soft to palpation Auscultation: normal bowel sounds Skin: General skin exam: normal color Rashes: no rashes Neuro: General: patient oriented x3 and moves all extremities Extrem: General: normal to inspection, no clubbing, cyanosis or edema and no pedal edema Course Course Emergency Course: Patient received a dose of p.o. Zithromax and advised to follow-up with his primary Vital Signs Vital signs: Vital Signs Oxygen Delivery Room Air 07/18/24 22:16 Temperature 36.2 C L 07/18/24 22:18 Puls
[2024-07-18] MEDS: AZITHROMYCIN 250 MG TABLET 500 MG PO (23:06)
== END 2024-07-18 23:15 | disposition home or self-care (01) ==
PROVIDERS: Emergency Provider Emergency Medicine; PCP Family Medicine
DX: J40 Bronchitis, not specified as acute or chronic (principal); Z79.899 Other long term (current) drug therapy; Z87.891 Personal history of nicotine dependence
CPT/HCPCS: 99283; A9270

== ENCOUNTER 2024-09-26 10:54 | Outpatient (CLI) | payer MEDICARE, SELFPAY ==
[2024-09-26 11:20] LABS: Basophils Absolute Auto 0.02 K/mm3 (0.00-0.10); Basophils Percent Auto 0.3 % (0.0-1.0); Eosinophils Absolute Auto 0.08 K/mm3 (0.02-0.50); Eosinophils Percent Auto 1.4 % (1.0-6.0); Hematocrit 36.9 % (37.0-46.0); Hemoglobin 12.2 g/dL (12.4-15.3); Immature Granulocyte Absolute 0.01 K/mm3 (0.00-0.00); Immature Granulocyte Percent A 0.2 % (0.0-0.0); Lymphocytes Absolute Auto 1.11 K/mm3 (1.10-4.50); Lymphocytes Percent Auto 18.9 % (18.0-42.0); Mean Corpuscular HGB Conc 33.1 g/dL (32-36); Mean Corpuscular Hemoglobin 28.5 pg (27.0-31.0); Mean Corpuscular Volume 86.2 fL (78.0-102.0); Mean Platelet Volume 12.3 fl (8.7-11.0); Monocytes Absolute Auto 0.66 K/mm3 (0.10-0.90); Monocytes Percent Auto 11.2 % (2.0-11.0); Platelet Count Result 113 K/mm3 (150-420); Red Blood Count 4.28 M/mm3 (4.70-6.10); Red Cell Distribution Width 14.6 % (11.6-14.4); White Blood Count 5.9 K/mm3 (4.8-10.8)
[2024-09-26 13:04] LABS: Alanine Aminotransferase 94 U/L (16-63); Albumin Level 3.3 g/dL (3.4-5.0); Alkaline Phosphatase 180 U/L (46-116); Anion Gap 7 mmol/L (4-12); Aspartate Amino Transferase 33 U/L (15-37); Bilirubin,Total 1.8 mg/dL (0.00-1.00); Blood Urea Nitrogen 16 mg/dL (7-18); Calcium 8.7 mg/dL (8.5-10.1); Carbon Dioxide 30 mmol/L (21-32); Chloride 103 mmol/L (98-108); Cholesterol 99 mg/dL (0-200); Estimated Glomerular Filt Rate > 60; Folic Acid 19.6 ng/mL (8.6->20); Glucose 87 mg/dL (70-99); HDL Direct 40 mg/dL (40-60); LDL Cholesterol Calculated 46 mg/dL (<130); Osmolality Calculated 290 mOsm/kg (285-295); Sodium 140 mmol/L (136-145); Total Protein 6.7 g/dL (6.4-8.2); Triglycerides 64 mg/dL (0-150); Vitamin B12 459 pg/mL (193-986)
[2024-09-26 13:08] LABS: Thyroid Stimulating Hormone Reflex 1.81 u/IU/mL (0.36-3.74)
[2024-09-28 07:12] LABS: Hepatitis A Antibody IgM NON-REACTIVE (NON-REACTIVE); Hepatitis B Core Antibody NON-REACTIVE (NON-REACTIVE)
[2024-09-28 07:27] LABS: Hepatitis B Surface Antigen NON-REACTIVE (NON-REACTIVE); Hepatitis C Virus Antibody NON-REACTIVE (NON-REACTIVE)
[2024-09-30 14:23] LABS: Arsenic, Blood <10 mcg/L (<23); Mercury, Blood <5 mcg/L (<OR=10)
[2024-10-01 05:18] LABS: Lead, Blood 2.5 mcg/dL (<3.5)
[2024-10-01 12:34] LABS: Vitamin B6 3.6 ng/mL (2.1-21.7)
[2024-10-03 16:58] LABS: Collection Sample VENOUT
== END 2024-09-26 10:55 | disposition home or self-care (01) ==
LOC: CHSLAB 10:56
PROVIDERS: PCP Family Medicine; Visit Provider Family Medicine
DX: E78.5 Hyperlipidemia, unspecified (principal); E03.9 Hypothyroidism, unspecified; R41.81 Age-related cognitive decline; E53.8 Deficiency of other specified B group vitamins; R74.01 Elevation of levels of liver transaminase levels; R71.8 Other abnormality of red blood cells; R27.9 Unspecified lack of coordination; R63.4 Abnormal weight loss
CPT/HCPCS: 36415; 80053; 80061; 80074; 82175; 82607; 82746; 83655; 83825; 84207; 84443; 85025

== ENCOUNTER 2024-10-02 10:57 | Outpatient (CLI) | payer MEDICARE, SELFPAY ==
--- NOTE | ~2024-10-02 | US_ITS ---
Limited Abdominal Sonogram: Real-time sonographic imaging of the right upper quadrant was performed. Clinical History: Abnormal liver enzyme levels Findings: The liver appears normal with no evidence of mass lesion or bile duct dilatation. Main por arnold vein demonstrates normal direction of flow. The gallbladder is well distended, and contains echog enic, shadowing gallstone. Gallbladder wall thickening up to 9 mm. The common bile duct measures 6 mm . The visualized pancreas, aorta, and IVC are unremarkable. Impression: Cholelithiasis. Suspected gallbladder wall thickening could reflect superimposed acute cholecystitis. Correlate clinically. Consider HIDA scan as indicated for further evaluation. Reviewed, dictated and finalized at location M. [employer] Impression: Cholelithiasis. Suspected gallbladder wall thickening could reflect superimpose d acute cholecystitis. Correlate clinically. Consider HIDA scan as indicated fo r further evaluation.
== END 2024-10-02 10:58 | disposition home or self-care (01) ==
LOC: CHSIMG 10:58
PROVIDERS: PCP Family Medicine; Visit Provider Family Medicine
DX: R74.01 Elevation of levels of liver transaminase levels (principal); K80.20 Calculus of gallbladder without cholecystitis without obstruction
CPT/HCPCS: 76705

== ENCOUNTER 2024-10-18 08:57 | Outpatient (CLI) | payer MEDICARE, SELFPAY ==
--- NOTE | ~2024-10-18 | NM_ITS ---
EXAMINATION: NM hepatobiliary wo pharm DATE: 10/18/2024 12:36 INDICATION: Cholelithiasis and chronic cholecystitis COMPARISON: None. TECHNIQUE: 2.7 mCi Tc-99m mebrofenin (Choletec) was administered intravenously. Scintigraphic images of the abdomen were obtained for one hour. At the 1 hour time point, the patient drank 8 oz Ensure, and imaging was continued for 60 minutes. Gallbladder ejection fraction was calculated by the technol ogist. FINDINGS: There is normal clearance of radiotracer from the blood pool. There is homogeneous tracer u ptake by the liver. Activity progresses to the bowel and gallbladder. The gallbladder ejection fract ion (GBEF) is 93%. Note that with this technique, normal GBEF >= 33%. IMPRESSION: 1. Normal hepatobiliary scan. Reviewed, dictated and finalized at location B. [employer]
== END 2024-10-18 08:58 | disposition home or self-care (01) ==
PROVIDERS: PCP Family Medicine; Visit Provider Surgery
DX: K80.10 Calculus of gallbladder with chronic cholecystitis without obstruction (principal)
CPT/HCPCS: 78226; A9537

== ENCOUNTER 2024-11-07 10:03 | Outpatient (CLI) | payer MEDICARE, SELFPAY ==
--- NOTE | ~2024-11-07 | MR_ITS ---
EXAMINATION: MR brain/brain stem wo/w con DATE: 11/07/2024 10:27 INDICATION: Unsteady gait. Compared vision. Lung cancer. TECHNIQUE: Magnetic resonance imaging (MRI) of the brain and brainstem was performed without intraven ous contrast. 3 plane localizer images and sagittal T1-weighted FSE sequences were obtained. Despite a negative screening review the technologist noted metallic magnetic field artifact in the region of the orbits on the initial imaging and the patient was removed from the scanner. Was notified by the t echnologist and reviewed prior CT dated 05/10/2024 which demonstrates tiny metallic densities in the r egion of the medial canthus of both the left and right orbits and it was elected to cancel further MR imaging. Study was terminated prior to the planned administration of intravenous contrast. COMPARISON: None. FINDINGS: The T1-weighted imaging demonstrates no evident intracranial hemorrhage or abnormal intracranial mass lesion. The ventricles are symmetric and normal in size. No evident abnormal extra-axial fluid colle ctions. Changes of bilateral intraocular lens replacement. Foci of metallic magnetic field artifact in the region of the medial calf of the bilateral orbits. IMPRESSION: 1. Study terminated following the initial sagittal T1 imaging of the brain due to metallic foreign hussein dies identified in the region of the medial canthi of the bilateral orbits. The limited T1 imaging wa s otherwise unremarkable. If there is concern for brain metastases would recommend further evaluation with contrast-enhanced CT of the brain. Reviewed, dictated and finalized at location A. GEMENT CONSULTING IMPRESSION: 1. Study terminated following the initial sagittal T1 imaging of the brain due to metallic foreign bodies identified in the region of the medial canthi of the bilateral orbits. The limited T1 imaging was otherwise unremarkable. If there is concern for brain metastases would recommend further evaluation with contras t-enhanced CT of the brain.
== END 2024-11-07 10:04 | disposition home or self-care (01) ==
PROVIDERS: PCP Family Medicine; Visit Provider Internal Medicine Hematology
DX: C34.91 Malignant neoplasm of unspecified part of right bronchus or lung (principal); H54.3 Unqualified visual loss, both eyes; R26.81 Unsteadiness on feet; H05.53 Retained (old) foreign body following penetrating wound of bilateral orbits
CPT/HCPCS: 70553

== ENCOUNTER 2024-12-25 08:30 | Outpatient (CLI) | payer MEDICARE, SELFPAY ==
--- NOTE | ~2024-12-25 | CT_ITS ---
Clinical Indication: Lung cancer CT Scan of the Chest, Abdomen, and Pelvis with Contrast: Technique: Contiguous sections were acquired throughout the chest, abdomen, and pelvis after intraven ous administration of 100 cc of Omnipaque 350. Dose reduction technique was used on this scan by mati perez automated exposure control and iterative reconstruction technique. The dose-length product (DL P) was 438.02 mGy-cm. Comparison: 07/11/2024 Findings: There is no evidence of any significant mediastinal, hilar or axillary lymphadenopathy. The mediastin al soft tissues appear normal. There is no evidence of pleural or pericardial effusion. There is chronic right basilar pleural thick ening and calcification. Status post right upper lobectomy with associated mild postoperative distortion/scarring of the right lung. Left lung clear. The liver, spleen, pancreas, and adrenal glands are within normal limits. Small calcified gallstones are present. Right renal cyst present. Left kidney markedly atrophic with multiple cysts, stable from prior exam. There are atherosclerotic calcifications of the aorta. 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 No lymphadenopathy. No bowel obstruction or bowel wall thickening. There is no evidence to suggest acute appendicitis. Urinary bladder is unremarkable. No pelvic mass seen. No ascites. 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 Impression: No evidence for active malignancy or metastatic disease. Status post right upper lobectomy. Stable chronic pleural thickening/scarring at the right lung base. Cholelithiasis. 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 Markedly atrophic left kidney. Reviewed, dictated and finalized at [facility]. Impression: No evidence for active malignancy or metastatic disease. Status post right upper lobectomy. Stable chronic pleural thickening/scarring at the right lung base. Cholelithiasis. 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 Markedly atrophic left kidney.
--- NOTE | ~2024-12-25 | CT_ITS ---
CT brain wo/w con Ordering provider: Tim Robertson MD History: 79 years Male with . CANCER OF RIGHT LUNG . Comparison: May 10, 2024 Technique: CT of the head without contrast. Radiation reduction technique utilized. The dose-length p roduct was 605. mGy-cm. 100 mL Omnipaque 350 was given IV. FINDINGS: BRAIN PARENCHYMA AND CSF SPACES: Mild leukoaraiosis and diffuse cortical atrophy. Mild atheromatous d isease. 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 No midline shift, mass effect or hemorrhage. The brain parenchyma and CSF spaces are otherwise normal. No enhancing lesions seen. VISUALIZED PARANASAL SINUSES: Well aerated. MASTOIDS: Well aerated. BONES: The bones appear intact. SOFT TISSUES: Visualized nasopharynx is normal. Superficial soft tissues are normal. IMPRESSION: No acute intracranial findings. No enhancing lesions seen. Reviewed, dictated and finalized at location A.
--- OUTSIDE RECORDS SUMMARY | 2024-12-25 08:53 | XMS_ITS | Referral Summary ---
Author Organization [facility] Address [address] [place] [address] Care Team Providers Care Labor Supervisor Name Role Phone Angelika Garcia MD Primary Care Provider [phone] Talib Lombardo MD Unavailable [phone] Aleisha Roman MD Unavailable [phone] Allergies Active Allergy Reactions Criticality Noted Date Comments Amlodipine Unknown 01/12/2022 Medications aspirin 81 mg chewable tablet Take by mouth Active latanoprost (XALATAN) 0.005 % ophthalmic solution Administer 1 drop into affected eye(s) Active traZODone (DESYREL) 100 mg tablet Take 1 tablet (100 mg total) by mouth Active rosuvastatin (CRESTOR) 10 mg tablet Take 1 tablet (10 mg total) by mouth daily Active oxybutynin XL (DITROPAN-XL) 10 mg 24 hr tablet Take 1 tablet (10 mg total) by mouth daily Active lisinopriL (PRINIVIL,ZESTR IL) 40 mg tablet Take 1 tablet (40 mg total) by mouth daily Active metoprolol XL (TOPROL-XL) 50 mg extended release tablet Take 1 tablet (50 mg total) by mouth daily Active amLODIPine (NORVASC) 10 mg tablet Take 1 tablet (10 mg total) by mouth daily Active atorvastatin (LIPITOR) 40 mg tablet Take 1 tablet (40 mg total) by mouth daily Active budesonide (PULMICORT) 90 mcg/actuation inhaler Inhale 1 puff 2 (two) times a day Rinse mouth with water after use. Do not swallow. Active polycarbophil (FIBERCON) 625 mg tablet Take 1 tablet (625 mg total) by mouth daily Active omega 0-clv-huv-fish oil 1,000 mg (120 mg-180 mg) capsule Active tiotropium bromide (SPIRIVA RESPIMAT) 2.5 mcg/actuation inhaler Inhale Active escitalopram (LEXAPRO) 5 mg tablet Take 1 tablet (5 mg total) by mouth daily Active furosemide (LASIX) 40 mg tablet Take 1 tablet (40 mg total) by mouth daily 2 Active calcium carbonate (OS-ANSON) 1,250 mg (500 mg elemental) tablet Take 1 tablet (1,250 mg total) by mouth daily Active brimonidine (ALPHAGAN) 0.2 % ophthalmic solution Administer 1 drop into affected eye(s) 2 (two) times a day Active hydroCHLOROthia zide (HYDRODIURIL) 12.5 mg tablet 3 Active dorzolamide-carolann oloL (COSOPT) 22.3-6.8 mg/mL ophthalmic solution Administer 1 drop into affected eye(s) 2 (two) times a day Active omeprazole (PriLOSEC) 20 mg capsule Take 1 capsule (20 mg total) by mouth daily For two months 60 capsule 3 Active Active Problems Problem Noted Date Diagnosed Date Malignant neoplasm of lung 01/26/2023 Overview (01/26/2023): Added automatically from request for surgery [id number] Primary cancer of right upper lobe of lung 11/11 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/19/2014 Lumbago 11/17/2014 Malignant neoplasm of prostate 03/30/2012 Immunizations Immunization Administration Dates Next Due Influenza, Quadrivalent, Spl it, Intramuscular 07/17/2019 Influenza, Quadrivalent, Spl it, Preservative Free, Intramuscular 08/08/2018 Moderna SARS-CoV-2 Monovalen t Vaccination (12+ YRS) 08/13/2021,01/22/2021,12/23/2020 Tdap 12/13/2022 ZOSTER LIVE 03/20/2013 Social History Tobacco Use Types Packs/Day Years Used Date Smoking Tobacco: Former Cigarettes Smokeless Tobacco: Never Tobacco Cessation:Counseling Given: Not Answered Alcohol Use Standard Drinks/Week Comments Not Currently 0 (1 standard drink = 0.6 oz pur e alcohol) AUDIT-C Answer Date Recorded Frequency of Alcohol Consumption Not on file 02/02/2023 Q2: How many drinks containi ng alcohol do you have on a typical day when you are drinking? Patient does not drink Frequency of Binge Drinking Not on file 01/15 Personal Safety Answer Date Recorded Have you ever been in or are you currently in a harmful physical or emotional relationship or is someone making you feel afraid or unsafe? 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 Gender Identity Not on file Sexual Orientation Not on file Last Filed Vital Signs Vital Sign Reading Time Taken Comments Blood Pressure 145/73 02/02/2023 11:08 AM CDT Pulse 60 02/02/2023 11:08 AM CDT Temperature 36.1 C (97 F) 02/02/2023 10:38 AM CDT Respiratory Rate 23 02/02/2023 11:08 AM CDT Oxygen Saturation 97% 02/02/2023 11:08 AM CDT Inhaled Oxygen Concentration - - Weight 67.1 kg (148 lb) 02/02/2023 9:34 AM CDT Height 170.2 cm (5' 7 ) 02/02/2023 9:34 AM CDT Body Mass Index 23.18 02/02/2023 9:34 AM CDT Plan of Treatment Not on file Insurance MEDICARE [employer] [facility] MEDICARE SOLUTIONS MEDICARE [facility] MEDICARE [employer]IC Care Teams Labor Supervisor Relationship Specialty Start Date End Date Angelika Garcia MD [address] [place] [address] PCP - General Family Medicine 08/20/20 Talib Lombardo MD [address] [address] PCP - Hematology/Oncology Medical Oncology 11/09/21 Aleisha Roman MD [address] [facility] [address] [place] [address] Medical Oncologist/Stock Broker Hematology and Oncology 11/09/21
--- OUTSIDE RECORDS SUMMARY | 2024-12-25 08:53 | XMS_ITS | Clinical Summary ---
Author Organization [facility] Address [address] [place] [address] Care Team Providers Care Polisher Apprentice Name Role Phone Km Matute MD Primary Care Provider Colt Ha MD Unavailable [phone] Allergies Active Allergy Reactions Criticality Noted Date Comments Amlodipine Unknown 01/12/2022 Hydrochlorothiazide Unknown,Dizziness Low 8 Iodine Dizziness,Nausea and Vomiting,Unknown,Tinnitus 09/07/2020 Medications atorvastatin 40 MG tablet Take 1 tablet (40 mg total) by mouth nightly at bedtime. Active LACTOBACILLUS OR Take 2 tablets by mouth daily. Active lisinopril 40 MG tablet Take 1 tablet (40 mg total) by mouth daily. Active dorzolamide-timol ol 22.3-6.8 MG/ML Solution Place 1 drop into both eyes 2 (two) times daily. Active hydroCHLOROthiazi de (MICROZIDE) 12.5 MG capsule Take 2 capsules (25 mg total) by mouth daily. 09/02/20 22 Active CALCIUM POLYCARBOPHIL OR Take 1,250 mg by mouth daily. Active albuterol sulfate HFA 108 (90 Base) MCG/ACT inhaler INHALE 2 PUFFS BY ORAL INHALATION FOUR TIMES A DAY NEEDED FOR BREATHING. SHAKE WELL. RINSE MOUTHPIECE FREQUENTLY TO PREVENT CLOGGING. 05/18/20 23 Active ipratropium-albut vinicio (DUONEB) 0.5-2.5 (3) MG/3ML Solution Take 3mls nebulizer treatment every 6hrs as needed for shortness of breath and/or wheezing 360 mL 07/29/20 23 Active NEBULIZER DEVICE, DME,Indications:A cute bacterial bronchitis,COPD exacerbation ([facility]) Take 1 Device by nebulization daily. Use with duoneb treatments 1 Device 07/29/20 23 Active albuterol (ACCUNEB) 0.63 MG/3ML nebulizer solution 12/12/19 24 Active mirtazapine (REMERON) 15 MG tablet Take 0.5 tablets (7.5 mg total) by mouth nightly at bedtime. Active brinzolamide-brim onidine (SIMBRINZA) 1-0.2 % ophthalmic suspension Place 1 drop into both eyes 2 (two) times a day. Active Netarsudil-Latano prost (ROCKLATAN) 0.02-0.005 % Solution Apply to eye nightly at bedtime. Active WALKER MISC, DME,Indications:A sthenia,Unsteady Gait 1 Device by Does not apply route daily. Indications: Physical Weakness or Low Energy, Unsteady Walk 1 Device 08/23/20 24 Active metoprolol succinate ER (TOPROL-XL) 25 MG 24 hr tabletIndications :Hypertension Take 1 tablet (25 mg total) by mouth daily. Indications: High Blood Pressure 90 tablet 08/24/20 24 Active Active Problems Problem Noted Date Diagnosed Date Failure to thrive in adult 08/16/2024 COPD with acute exacerbation ([facility]) 1 Dyspnea on exertion 09/02/2022 Essential (primary) hypertension 03/03/2022 Hyperlipidemia, unspecified hyperlipidemia type 03/03/2022 Malignant neoplasm of lung, unspecified laterality, unspecified part of lung ([facility]) 03/03/2022 H/O prostate cancer 03/03/2022 Primary osteoarthritis of right shoulder 020 Chronic obstructive pulmonary disease ([facility]) 01/14/2014 Resolved Problems Problem Noted Date Diagnosed Date Resolved Date COVID-19 08/17/2024 08/23/2024 Encounter for preventive health examination 01/10/2014 06/26/2020 Immunizations Name Administration Dates Next Due Fluzone (IIV3, Trivalent, 0.5 ML Prefilled Syrin ge) 08/23/2024 Influenza Adult (Generic) 08/08/2018 Zoster (Zostavax) 18153 Unt/0.65Ml 03/20/2013 Family History Medical History Relation Comments No Known Problems Father No Known Problems Mother Heart Disease Sister Relation Status Comments Father Mother Sister Social History Tobacco Use Types Packs/Day Years Used Date Smoking Tobacco: Never Smokeless Tobacco: Never Alcohol Use Standard Drinks/Week Comments No 0 (1 standard drink = 0.6 oz pur e alcohol) [facility] Utilities Answer Date Recorded In the past 12 months has e [employer], gas, oil, or water [employer] threatened to shut off services in your home? No 08/16/2024 Humiliation, Afraid, Rape, and Kick questionnair e Answer Date Recorded Within the last year, have y ou been afraid of your partner or ex-partner? No 08/16/2024 Within the last year, have y ou been humiliated or emotionally abused in other ways by your partner or ex-partner? No Within the last year, have y ou been kicked, hit, slapped, or otherwise physically hurt by your partner or ex-partner? No 08/16/2024 Within the last year, have y ou been raped or forced to have any kind of sexual activity by your partner or ex-partner? No 08/16/2024 AUDIT-C Answer Date Recorded Frequency of Alcohol Consumption Never 06/14/2019 Average Number of Drinks Not on file 019 Frequency of Binge Drinking Not on file 05/18 Overall Financial Resource Strain (CARDIA) Answe r Date Recorded How hard is it for you to pa y for the very basics like food, housing, medical care, and heating? Not hard at all 08/16/2024 Hunger Vital Sign Answer Date Recorded Within the past 12 months, y ou worried that your food would run out before you got the money to buy more. Never true 08/16/20 24 Within the past 12 months, t he food you bought just didn't last and you didn't have money to get more. Never true 08/16/2024 PRAPARE - Transportation Answer Date Re corded In the past 12 months, has l ack of transportation kept you from medical appointments or from getting medications? No 10/2023 In the past 12 months, has l ack of transportation kept you from meetings, work, or from getting things needed for daily living? No 08/16/2024 Housing Stability Vital Sign Answer Isaiah e Recorded In the last 12 months, was t here a time when you were not able to pay the mortgage or rent on time? No 07/27/2023 In the last 12 months, how many places have you lived? 1 07/27/2023 In the last 12 months, was t here a time when you did not have a steady place to sleep or slept in a long-term (including now)? No 07/27/2023 Housing Stability Vital Sign Answer Isaiah e Recorded In the last 12 months, was t here a time when you were not able to pay the mortgage or rent on time? No 08/16/2024 In the past 12 months, how m any times have you moved where you were living? 1 08/16/2024 At any time in the past 12 m [facility], were you homeless or living in a long-term (including now)? No 08/16/2024 Sex and Gender Information Value Date Recorded Sex Assigned at Not on file Legal Sex Male 5:27 PM CDT Gender Identity Not on file Sexual Orientation Not on file Occupation Industry Job Start Date Job End Date retired Not on file Not on file Not on file Last Filed Vital Signs Vital Sign Reading Time Taken Comments Blood Pressure 133/63 08/23/2024 8:05 AM AIRWAYS OPERATIONS SPECIALIST Pulse 92 08/23/2024 8:05 AM AIRWAYS OPERATIONS SPECIALIST Temperature 35.4 C (95.7 F) 08/23/2024 8:05 AM AIRWAYS OPERATIONS SPECIALIST Respiratory Rate 18 08/23/2024 8:05 AM AIRWAYS OPERATIONS SPECIALIST Oxygen Saturation 100% 08/23/2024 8:05 AM AIRWAYS OPERATIONS SPECIALIST Inhaled Oxygen Concentration - - Weight 57.6 kg (127 lb) 08/21/2024 6:02 AM AIRWAYS OPERATIONS SPECIALIST Height 170.2 cm (5' 7 ) 08/16/2024 6:05 PM CDT Body Mass Index 19.89 08/16/2024 6:05 PM CDT Plan of Treatment Upcoming Encounters Date Type Department Care Team (Late st Contact Info) Description 01/17/2025 12:00 PM CDT Office Visit [facility] [address] Colt Ha MD 3 [facility] [address] [facility] [place] [phone] Health Maintenance Due Date Last Done Comments Annual Medicare Wellness Visit 02/18/2009 RSV Immunization or 60+ Years (1 - 1-dose 75+ series) 02/18/2019 COVID-19 Vaccine (4 - season) 2024 08/13/2021, 01/22/2021, 12/23/2020 DTaP, Tdap and Td Vaccines (4 - Td or Tdap) 12/13/2032 12/13/2022, 2013, 04/24/2008 Pneumococcal Vaccine: 65+ Years Completed 07/31/2015, 09/10/2013 Zoster Vaccines Completed 07/01/2019, 12/14, 03/20/2013 Influenza Adult Completed 08/23/2024, 10/2020, 07/17/2019, Additional history exists Meningococcal B Vaccine Aged Out No l onger eligible based on patient's age to complete this topic Meningococcal Vaccine Aged Out No felipe sarwat eligible based on patient's age to complete this topic RSV Immunizations Under 20 Months Aged Out No longer eligible based on patient's age to complete this topic Insurance [facility] Advance Directives * Full Code (Latest Code Status on File) Date Activated Date Inactivated Comments 08/16/2024 5:51 PM 08/23/2024 3:30 PM * Full Code Date Activated Date Inactivated Comments 07/27/2023 3:58 PM 07/29/2023 1:50 PM Care Teams Polisher Apprentice Relationship Specialty Start Date End Date Km Matute MD [address] [place] [address] PCP - General FAMILY PRACTICE 01/21/22 Colt Ha MD [address] [facility] [address] [place] [phone] Consulting Physician CARDIOVASCULAR DISEASE 01/21/22
--- OUTSIDE RECORDS SUMMARY | 2024-12-25 08:53 | XMS_ITS ---
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 Past Treatment and Therapy Plans No past plan information found. Lifetime Dose Tracking * Chemical Lifetime Dose Automatic Entry Manual Entr y Fluoro Time 2.9 minutes 2.9 minutes 0 minutes Air kerma at the reference point (Ka,r) 78.2 mGy 7 8.2 mGy 0 mGy DLP 896 mGycm 896 mGycm 0 mGycm
--- OUTSIDE RECORDS SUMMARY | 2024-12-25 08:53 | XMS_ITS | Encounter Summary ---
Author Organization [facility] Address [facility] [place] [address] Care Team Providers Care Drywaller Name Role Phone None, Provider Primary Care Provider Unavaila Angelika Valentin MD Primary Care Provider [phone] Km Matute MD Primary Care Provider Colt Ha MD Unavailable [phone] Encounter Details Date Type Department Care Team (Latest Contact Info) Description 08/21/2018 Abstract [facility] , Traci Rodriguez MD Social History Tobacco Use Types Packs/Day Years Used Date Smoking Tobacco: Never Assessed Sex and Gender Information Value Date Recorded Sex Assigned at Not on file Legal Sex Male 5:27 PM CDT Gender Identity Not on file Sexual Orientation Not on file documented as of this encounter Plan of Treatment Upcoming Encounters Date Type Department Care Team (Late st Contact Info) Description 01/17/2025 12:00 PM CDT Office Visit [facility] [address] Colt Ha MD 3 [facility] [address] [place] [phone] documented as of this encounter Visit Diagnoses Not on filedocumented in this encounter Additional Health Concerns Infection Onset Date Last Indicated Resolved Time COVID-19 Rule Out 07/24/2023 07/24/2023 07/24/2023 1:43 AM CDT COVID-19 Rule Out 08/11/2024 08/11/202408/1108/11/2024 2:14 PM CDT COVID-19 Confirmed 08/11/2024 08/11/2024 12:32 AM POT HOLDER BINDER documented as of this encounter Care Teams Drywaller Relationship Specialty Start Date End Date None, Glenda, PCP - General 06/19/19 07/03/19 Angelika Garcia MD [address] [address] PCP - General FAMILY PRACTICE 07/04/19 01/20/22 Km Matute MD [address] [place] [place] [address] PCP - General FAMILY PRACTICE 01/21/22 Colt Ha MD 3 [facility] [address] [place] [phone] Consulting Physician CARDIOVASCULAR DISEASE 01/21/22 documented as of this encounter
--- OUTSIDE RECORDS SUMMARY | 2024-12-25 08:53 | XMS_ITS | Clinical Summary ---
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/19/2014 Lumbago 11/17/2014 Malignant neoplasm of prostate 03/30/2012 Immunizations Immunization Administration Dates Next Due Influenza, Quadrivalent, Spl it, Intramuscular 07/17/2019 Influenza, Quadrivalent, Spl it, Preservative Free, Intramuscular 08/08/2018 Moderna SARS-CoV-2 Monovalen t Vaccination (12+ YRS) 08/13/2021,01/22/2021,12/23/2020 Tdap 12/13/2022 ZOSTER LIVE 03/20/2013 Surgical History Surgery Date Site/Laterality Comments LUNG REMOVAL, PARTIAL Right Medical History Medical History Date Comments Personal history of other di seases of the circulatory system History of hypertension - (A dded by TW Conv) Anxiety disorder Anxiety - (Adde d by TW Conv) Personal history of other di seases of the nervous system and sense organs History of glaucoma - (Added by TW Conv) Personal history of other me ntal and behavioral disorders History of depression - (Add ed by TW Conv) Hypertension Glaucoma Hyperlipidemia Family History Medical History Relation Name Comments Cancer Other 1 Family history of cancer - (Added by TW Conv) Hypertension Other 2 Family history of hypertension - (Added by TW Conv) Relation Name Status Comments Mother Other 1 Other 2 Social History Tobacco Use Types Packs/Day Years [...] on file 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 Gender Identity Not on file Sexual Orientation Not on file Obstetrics History Last Filed Vital Signs Vital Sign Reading [...] 02/02/2023 9:34 AM CDT Plan of Treatment Health Maintenance Due Date Last Done Comments Depression Screening 1945 Hepatitis B Screening 02/18/1963 Well Visit 65+ 02/18/2009 Pneumococcal vaccine 65+ (2 of 2 - PPSV23) 09/25/2015 07/31/2015, 09/10/2013, 2013 Fall Risk Assessment 02/03/2024 02/02/2023 Covid-19 Vaccine (4 - 2023-2 5 season) 2024 08/13/2021, 01/22/2021, 12/23/2020 Influenza Vaccine (#1) 2024 , 07/17/2019, 08/08/2018, Additional history exists DTaP/Tdap/Td Vaccine (4 - Td or Tdap) 12/13/2032 12/13/2022, 2013, 04/24/2008 Zoster Vaccine Completed 07/01/2019, 12/14, 03/20/2013 Insurance MEDICARE [employer] GENER[employer] R [facility] MEDICARE SOLUTIONS MEDICARE [facility] MEDICARE [employer] COMMERCIAL GENERIC Care Teams Women'S Studies Professor Relationship Specialty Start Date End Date Angelika Garcia MD [address] [place] [address] PCP - General Family Medicine 08/20/20 Talib Lombardo MD [address] [place] [address] [address] [place] [phone] PCP - Hematology/Oncology Medical Oncology 11/09/21 Aleisha Roman MD [address] [place] [address] [address] [place] [phone] Medical Oncologist/Dressed Poultry Grader Hematology and Oncology 11/09/21
[2024-12-25 08:58] LABS: Estimated Glomerular Filt Rate 54
== END 2024-12-25 08:31 | disposition home or self-care (01) ==
LOC: CHSIMG 08:32
PROVIDERS: PCP Family Medicine; Visit Provider Internal Medicine Hematology
DX: C34.91 Malignant neoplasm of unspecified part of right bronchus or lung (principal); Z90.2 Acquired absence of lung [part of]; R91.8 Other nonspecific abnormal finding of lung field; K80.20 Calculus of gallbladder without cholecystitis without obstruction; N26.1 Atrophy of kidney (terminal); I74.5 Embolism and thrombosis of iliac artery
CPT/HCPCS: 70470; 71260; 74177; Q9967

== ENCOUNTER 2025-07-16 10:19 | Outpatient (CLI) | payer MEDICARE, SELFPAY ==
[2025-07-16 10:39] LABS: Hematocrit 38.0 % (37.0-46.0); Hemoglobin 12.5 g/dL (12.4-15.3); Immature Granulocyte Percent A 0.3 % (0.0-0.0); Immature Platelet Fraction Pct 5.6 % (1.0-7.0); Lymphocytes Absolute Auto 1.23 K/mm3 (1.10-4.50); Mean Corpuscular HGB Conc 32.9 g/dL (32-36); Mean Corpuscular Hemoglobin 28.3 pg (27.0-31.0); Mean Corpuscular Volume 86.0 fL (78.0-102.0); Nucleated Red Blood Cells Absolute Auto 0.00 K/mm3 (0.00-0.00); Nucleated Red Blood Cells Perc 0.0 % (0-0.0); Platelet Count Result 91 K/mm3 (150-420); Red Blood Count 4.42 M/mm3 (4.70-6.10); White Blood Count 6.6 K/mm3 (4.8-10.8)
--- OUTSIDE RECORDS SUMMARY | 2025-07-16 11:07 | XMS_ITS | Encounter Summary ---
Author Organization [facility] Address [facility] [place] [address] Care Team Providers Care Director Post Name Role Phone None, Provider Primary Care Provider Angelika Kee MD Primary Care Provider Km Matute MD Primary Care Provider [phone] Colt Ha MD Unavailable [phone] Encounter Details Date Type Department Care Team (Latest Contact Info) Description 08/21/2018 Abstract [facility] Traci Yanez MD Social History Tobacco Use Types Packs/Day Years Used Date Smoking Tobacco: Never Assessed Sex and Gender Information Value Date Recorded Sex Assigned at Not on file Legal Sex Male 5:27 PM CDT Gender Identity Not on file Sexual Orientation Not on file documented as of this encounter Plan of Treatment Not on file documented as of this encounter Visit Diagnoses Not on filedocumented in this encounter Additional Health Concerns Infection Onset Date Last Indicated Resolved Time COVID-19 Rule Out 07/24/2023 07/24/2023 07/24/2023 1:43 AM CDT COVID-19 Rule Out 08/11/2024 08/11/2024 08/11/2024 2:14 PM CDT COVID-19 Confirmed 08/11/2024 08/11/2024 12:32 AM LENS HARDENER documented as of this encounter Care Teams Director Post Relationship Specialty Start Date End Date None, ProviderMD PCP - General 06/19/19 07/03/19 Angelika Garcia MD [address] [place] [address] PCP - General FAMILY PRACTICE 07/04/19 01/20/22 Km Matute MD [address] [facility] [place] [phone] PCP - General FAMILY PRACTICE 01/21/22 Colt Ha MD [address] [phone] Consulting Physician CARDIOVASCULAR DISEASE 01/21/22 documented as of this encounter
--- OUTSIDE RECORDS SUMMARY | 2025-07-16 11:07 | XMS_ITS ---
Author Organization [facility] Address [address] [place] [address] Care Team Providers Care Skelp Processor Name Role Phone Angelika Garcia MD Primary Care Provider [phone] Talib Lombardo MD Unavailable Aleisha Roman MD Unavailable [phone] Active Problems Problem Noted Date Diagnosed Date Malignant neoplasm of lung 01/26/2023 Overview (01/26/2023): Added automatically from request for surgery [id number] Primary cancer of right upper lobe of [...]
--- OUTSIDE RECORDS SUMMARY | 2025-07-16 11:07 | XMS_ITS | Clinical Summary ---
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 Gender Identity Not on file Sexual Orientation [...] 9:34 AM CDT Height 170.2 cm (5' 7) 02/02/2023 9:34 AM CDT Body Mass Index 23.18 02/02/2023 9:34 AM CDT Plan of Treatment Health Maintenance Due Date Last Done Comments Depression Screening 1945 Hepatitis B Screening 02/18/1963 Well Visit 65+ 02/18/2009 Pneumococcal vaccine 65+ (2 of 2 - PPSV23, PCV20, or PCV21) 09/25/2015 07/31/2015, 09/10/2013, 2013 Fall Risk Assessment 02/03/2024 02/02/2023 Covid-19 Vaccine (4 - 2024-2 6 season) 2025 08/13/2021, 01/22/2021, 12/23/2020 Influenza Vaccine (#1) 2025 , 07/17/2019, 08/08/2018, Additional history exists DTaP/Tdap/Td Vaccine (4 - Td or Tdap) 12/13/2032 12/13/2022, 2013, 04/24/2008 Zoster Vaccine Completed 07/01/2019, 12/14, 03/20/2013 Insurance [facility] MEDICARE ADVANTAGE COMMERCIAL GENERIC [facility] MEDICARE ADVANTAGE MEDICARE [facility] MEDICARE ADVANTAGE COMMERCIAL GENERIC Care Teams Tractor Drill Operator Relationship Specialty Start Date End Date Angelika Garcia MD [address] [place] [address] PCP - General Family Medicine 08/20/20 Talib Lombardo [facility] [address] [place] [address] PCP - Hematology/Oncology Medical Oncology 11/09/21 Aleisha Roman MD [facility] [place] [address] Medical Oncologist/Content Creation Manager Hematology and Oncology 11/09/21
--- OUTSIDE RECORDS SUMMARY | 2025-07-16 11:07 | XMS_ITS | Clinical Summary ---
Author Organization [facility] Address [address] [place] [address] Care Team Providers Care Traffic Control Specialist Name Role Phone Km Matute MD Primary Care Provider Colt Ha MD Unavailable [phone] Allergies Active Allergy Reactions Criticality Noted [...] NEBULIZER DEVICE, DME,Indications:A cute bacterial bronchitis,COPD exacerbation ([facility]) Take 1 Device by nebulization daily. Use [...] in adult 08/16/2024 COPD with acute exacerbation ([facility]) 1 Dyspnea on exertion 09/02/2022 Essential (primary) hypertension 03/03/2022 Hyperlipidemia, unspecified hyperlipidemia type 03/03/2022 Malignant neoplasm of lung, unspecified laterality, unspecified part of lung ([facility]) 03/03/2022 H/O prostate cancer 03/03/2022 Primary osteoarthritis of right shoulder 020 Chronic obstructive pulmonary disease ([facility] H HS/[facility]) 01/14/2014 Resolved Problems Problem Noted Date Diagnosed Date Resolved Date COVID-19 08/17/2024 08/23/2024 Encounter for preventive health examination 01/10/2014 06/26/2020 Immunizations Immunization Administration Dates Next Due Fluzone (IIV3, Trivalent, 0.5 ML Prefilled Syrin ge) 08/23/2024 Influenza Adult (Generic) 08/08/2018 Zoster (Zostavax) 63071 Unt/0.65Ml 03/20/2013 Family History Medical History Relation Comments No Known Problems Father No Known Problems Mother Heart Disease Sister Relation Status Comments Father Mother Sister Social History Tobacco Use Types Packs/Day Years Used Date Smoking Tobacco: Never Smokeless Tobacco: Never Alcohol Use Standard Drinks/Week Comments No 0 (1 standard drink = 0.6 oz pur e alcohol) [facility] Utilities Answer Date Recorded In the past 12 months has e aWhere, gas, oil, or water [employer] threatened to shut off services in your [...] place to sleep or slept in a half-way (including now)? No 07/27/2023 Housing Stability Vital Sign Answer Isaiah e Recorded In the last 12 months, was t here a time when you were not able to pay the mortgage or rent on time? No 08/16/2024 In the past 12 months, how m any times have you moved where you were living? 1 08/16/2024 At any time in the past 12 m [facility], were you homeless or living in a half-way (including now)? No 08/16/2024 Sex and Gender [...] Comments Blood Pressure 133/63 08/23/2024 8:05 AM BOOMBOAT OPERATOR Pulse 92 08/23/2024 8:05 AM BOOMBOAT OPERATOR Temperature 35.4 C (95.7 F) 08/23/2024 8:05 AM BOOMBOAT OPERATOR Respiratory Rate 18 08/23/2024 8:05 AM BOOMBOAT OPERATOR Oxygen Saturation 100% 08/23/2024 8:05 AM BOOMBOAT OPERATOR Inhaled Oxygen Concentration - - Weight 57.6 kg (127 lb) 08/21/2024 6:02 AM BOOMBOAT OPERATOR Height 170.2 cm (5' 7) 08/16/2024 6:05 PM CDT Body Mass Index 19.89 08/16/2024 6:05 PM CDT Plan of Treatment Health Maintenance Due Date Last Done Comments Annual Medicare Wellness Visit 02/18/2009 RSV Immunization or 60+ Years (1 - 1-dose 75+ series) 02/18/2019 COVID-19 Vaccine (2024-2 6 season) 2025 08/13/2021, 01/22/2021, 12/23/2020 DTaP, Tdap and Td Vaccines ( 4 - Td or Tdap) 12/13/2032 12/13/2022, 2013, 04/24/2008 Pneumococcal Vaccine: 50+ Years Completed 07/31/2015, 09/10/2013 Zoster Vaccines Completed 07/01/2019, 12/24/2018, 03/20/2013 Meningococcal B Vaccine Aged Out No l onger eligible based on patient's age to complete this topic Meningococcal Vaccine Aged Out No felipe sarwat eligible based on patient's age to complete this topic RSV Immunizations Under 20 Months Aged Out No longer eligible b ased on patient's age to complete this topic Insurance [employer] MEDICARE Advance Directives * Full Code (Latest Code Status on File) Date Activated Date Inactivated Comments 08/16/2024 5:51 PM 08/23/2024 3:30 PM * Full Code Date Activated Date Inactivated Comments 07/27/2023 3:58 PM 07/29/2023 1:50 PM Care Teams Traffic Control Specialist Relationship Specialty Start Date End Date Km Matute MD [facility] [place] [phone] PCP - General FAMILY PRACTICE 01/21/22 Colt Ha MD [address] [facility] [address] [place] [address] Consulting Physician CARDIOVASCULAR DISEASE 01/21/22
[2025-07-16 11:10] LABS: Iron 87 ug/dL (49-181)
[2025-07-16 11:19] LABS: Percent Iron Saturation 25 % (20-50)
[2025-07-16 12:23] LABS: Vitamin B12 275.0 pg/mL (239-931)
== END 2025-07-16 10:20 | disposition home or self-care (01) ==
LOC: CHSLAB 10:21
PROVIDERS: PCP Family Medicine; Visit Provider Internal Medicine Hematology
DX: C34.91 Malignant neoplasm of unspecified part of right bronchus or lung (principal); D64.9 Anemia, unspecified
CPT/HCPCS: 36415; 82607; 82746; 83540; 83550; 85025; 85055

== ENCOUNTER 2025-10-15 09:30 | Emergency (ER) | payer MEDICARE, SELFPAY ==
--- NOTE | ~2025-10-15 | XR_ITS ---
XR chest 1V portable 10/15/2025 09:51 Indication: Shortness of breath Procedure: AP portable chest Comparison: 03/13/2022 Findings: There is chronic scarring right mid and lower chest with small right pleural effusion/pleural thickening. Heart size normal. Left lung clear. No acute focal pneumonia or pneumothorax. No acute osseous abnormality. Impression: 1: Chronic parenchymal scarring right mid and lower lung without significant change allowing for technique. Reviewed, dictated and finalized at location O. BUTTON SPLITTER Impression: 1: Chronic parenchymal scarring right mid and lower lung without significant ch steve allowing for technique.
[2025-10-15 09:31] VITALS: BP 182/100; PULSE 95; RESP 16; TEMP 36.3; O2SAT 100
--- NOTE | 2025-10-15 09:35 | ED.SOB ---
HPI - SOB/Dyspnea General Chief Complaint: Shortness of Breath/Dyspnea Stated Complaint: shortness of breath Time Seen by Provider: 10/15/25 09:35 Source: patient and family Mode of arrival: ambulatory Limitations: no limitations History of Present Illness HPI Narrative: Patient is an 80-year-old male with shortness of breath and has 1 lung on the left still present from prior illness. No chest pain. No nausea vomiting or diarrhea. He also has a cough and congestion with runny nose. MD elicited complaint: shortness of breath and cough Pertinent past history: other (Hyperlipidemia, hypertension, 1 lung) Onset (ago): day(s) (2) Context: other (Patient having shortness of breath and cough congestion for the past 2 days; patient has 1 lung) Timing: constant and progressively worsening Severity: moderate Exacerbating factors: exertion Relieving factors: rest Known history of: other (Hypertension, hyperlipidemia, 1 lung) Associated symptoms: sputum production and chest congestion Treatment prior to arrival: none Related Data Home oxygen amount: none Home Medications ?Medication ?Instructions ?Recorded ?Confirmed ?Last Taken ?Type Lactobacillus acidophilus See Rx Instructions .Route .COMPLEX 03/13/22 07/18/25 Unknown History atorvastatin 40 mg tablet 40 mg PO HS 03/13/22 07/18/25 Unknown History lisinopril 40 mg tablet 40 mg PO DAILY 03/13/22 07/18/25 Unknown History dorzolamide 2 %-timolol 0.5 % (PF) 1 drp EACH EYE BID 07/18/25 07/23/25 Unknown History eye drops mirtazapine 7.5 mg tablet 7.5 mg PO QHS 07/18/25 07/23/25 Unknown History netarsudil 0.02 %-latanoprost 1 drp EACH EYE QPM 07/18/25 07/23/25 Unknown History 0.005 % eye drops trazodone 50 mg tablet 50 mg PO QHS 07/18/25 07/23/25 Unknown History brinzolamide 1 %-brimonidine 0.2 % 1 drp EACH EYE BID 07/23/25 07/23/25 Unknown History eye drops,suspension calcium polycarbophil 625 mg tablet 1,250 mg PO DAILY constipation 07/23/25 07/18/25 Unknown History Allergies Allergy/AdvReac Type Severity Reaction Status Date / Time No Known Allergies Allergy Verified 10/15/25 09:32 Review of Systems Review of Systems: All systems reviewed & are unremarkable except as noted in HPI and below Constitutional: Constitutional: Reports no additional constitutional complaints Eyes: Eyes: Reports no additional eye complaints ENT: Reports system reviewed and no additional complaints, except as documented Cardiovascular: Cardiovascular: Reports no additional cardiovascular complaints Respiratory: Respiratory: Reports no additional respiratory complaints Gastrointestinal: Gastrointestinal: Reports no additional gastrointestinal complaints Genitourinary: Genitourinary: Reports no additional male genitourinary complaints Musculoskeletal: Musculoskeletal: Reports no additional musculoskeletal complaints Integumentary/Breasts: Skin/Breast: Reports system reviewed and no additional complaints, except as docu Neurologic: Reports system reviewed and no additional complaints, except as documented Psychiatric: Psychiatric: Reports no additional psychiatric complaints Endocrine: Endocrine: Reports no additional endocrine complaints Hematologic/Lymphatic: Hematologic/Lymphatic: Reports no additional hematologic/lymphatic complaints Allergic/Immunologic: Allergic/Immunologic: Reports no additional allergic/immunologic complaints PMFSH Past Medical History Medical History COPD (chronic obstructive pulmonary disease) Asthma UTI (urinary tract infection) Confusion state Surgical History Surgical History Hx of pneumonectomy 2018 Social History Social History Smoking packs per day: 1 Smoking cigarettes per day: 20.0 Years smoked: 20 Smoking pack-years: 20.00 Smoking status: Former smoker Tobacco type: cigarettes Alcohol intake: never Substance use: current Substance use type: marijuana Other substance usage details: uses marijuana for glaucoma Last use: more than week ago Lack of Transportation: No Lack of Food: Never True Current Housing: I Have Housing Concerned About Future Housing: Decline to Answer Difficulty Paying Gas/Electric Bills: No Difficulty Paying for Meds: No Currently Unemployed: No Education: High School Diploma/GED Spiritual care concerns: No Exam Const: General: healthy appearing Nutritional Appearance: well nourished Orientation/consciousness: patient oriented x3 Limitations: no limitations HENMT: Head: normal to inspection Ears: external ears normal Face/Nose/Sinus: Normal external nose present Eyes: Conjunctivae: conjunctivae normal Pupils: Equal, round and reactive pupils present EOM: EOMs intact bilaterally Neck: Neck: normal visual inspection, no lymphadenopathy and no meningeal signs Chest: Chest palpation & inspection: normal inspection of the chest Resp: Effort & Inspection: normal respiratory effort, not labored, no retractions, not tachypneic and no use of accessory muscles Auscultation: clear to auscultation bilaterally (In reality he only has left-sided 1 lung present), no crackles, no rales, no rhonchi, no wheezes, breath sounds present and lung sounds not diminished Cardio: Rate: regular rate Rhythm: regular rhythm Heart sounds: no murmurs GI: Inspection: non-distended GI Palp: Yes Soft to palpation and No Tenderness to palpation present (GI) Auscultation: normal bowel sounds : General: Yes bladder normal to palpation Back/Spine/Pelvis: Back: no CVA tenderness Skin: General skin exam: normal color Rashes: no rashes Wounds: no wounds Neuro: General: patient oriented x3, moves all extremities, no meningeal signs, no focal motor deficits and CN's II-XI intact bilaterally Cranial nerves: Yes Nystagmus not present Speech: normal speech Gait exam (Neuro): gait abnormal (Baseline abnormal shuffling gait) Extrem: General: normal to inspection, no clubbing, cyanosis or edema and no pedal edema Psych: Mental Status: mental status grossly normal Affect: normal affect Attitude: cooperative Course Vital Signs Vital signs: Vital Signs Temperature 36.3 C L 10/15/25 09:31 Pulse Rate 95 10/15/25 09:31 Respiratory Rate 16 10/15/25 09:31 Blood Pressure 182/100 H 10/15/25 09:31 Pulse Oximetry 100 10/15/25 09:31 Oxygen Delivery Room Air 10/15/25 09:31 Temperature 36.3 C L 10/15/25 09:31 Pulse Rate 95 10/15/25 09:31 Respiratory Rate 16 10/15/25 09:31 Blood Pressure 182/100 H 10/15/25 09:31 Pulse Oximetry 99 10/15/25 09:50 Oxygen Delivery Room Air 10/15/25 09:50 MDM MDM Narrative Medical decision making narrative: Patient is a 80-year-old male with some upper respiratory and lower respiratory complaints at this time. We will do a cardiopulmonary workup at this time. Patient having some depression and insomnia which I had told him he must review with his primary doctor. Elevated bilirubin needs also be discussed with the primary as an outpatient workup. He is not having any abdominal pain or nausea vomiting. Differential Diagnosis Differential Diagnosis: Pneumonia, bronchitis, sepsis Lab Data MDM Lab Attestation statement: I personally reviewed the patient's lab results. 10/15/25 10:10 10/15/25 10:10 Labs: Lab Results 10/15/25 10/15/25 Range/Units 10:10 11:07 WBC 9.0 (4.8-10.8) K/mm3 RBC 4.75 (4.70-6.10) M/mm3 Hgb 13.5 (12.4-15.3) g/dL Hct 40.8 (37.0-46.0) % MCV 85.9 (78.0-102.0) fL MCH 28.4 (27.0-31.0) pg MCHC 33.1 (32-36) g/dL RDW 13.6 (11.6-14.4) % Plt Count 145 L (150-420) K/mm3 MPV 12.6 H (8.7-11.0) fl Immature Gran % (Auto) 0.2 H (0.0-0.0) % Neut % (Auto) 78.7 H (50.0-70.0) % Lymph % (Auto) 10.2 L (18.0-42.0) % [place] % (Auto) 9.7 (2.0-11.0) % Eos % (Auto) 1.0 (1.0-6.0) % Baso % (Auto) 0.2 (0.0-1.0) % Lymph # (Auto) 0.92 L (1.10-4.50) K/mm3 [place] # (Auto) 0.88 (0.10-0.90) K/mm3 Eos # (Auto) 0.09 (0.02-0.50) K/mm3 Baso # (Auto) 0.02 (0.00-0.10) K/mm3 Abs Immat Gran (auto) 0.02 H (0.00-0.00) K/mm3 Absolute Neuts (auto) 7.11 (1.70-7.20) K/mm3 Absolute Nucleated RBC 0.00 (0.00-0.00) K/mm3 Nucleated RBC % 0.0 (0-0.0) % Sodium 149 H (137-145) mmol/L Potassium 3.8 (3.4-5.0) mmol/L Chloride 110 H (98-107) mmol/L Carbon Dioxide 27 (22-30) mmol/L Anion Gap 12 (4-12) mmol/L BUN 22 H (9-20) mg/dL Creatinine 1.22 (0.7-1.3) mg/dL Estim Creat Clear Calc 35 ml/min Estimated GFR 57 L (59 - ) Glucose 105 (65-110) mg/dL Calculated Osmolality 311 H (285-295) mOsm/kg Lactic Acid 1.2 (0.7-2.0) mmol/L Calcium 9.2 (8.4-10.2) mg/dL Total Bilirubin 2.8 H (0.2-1.3) mg/dL AST 29 (17-59) U/L ALT 19 (6-50) U/L Alkaline Phosphatase 90 (38-126) U/L Troponin I < 0.012 (0.000-0.034) ng/mL NT-Pro-B Natriuret Pep 364 H (19.9-100) pg/mL Total Protein 8.0 (6.3-8.2) g/dL Albumin 4.6 (3.5-5.1) g/dL Urine Color Yellow (Yellow) Urine Appearance Clear (Clear) Urine pH 6.0 (5.0-8.0) Ur Specific He[place]rick 1.025 H (1.010-1.020) Urine Protein 2+ H (Negative) Urine Glucose (UA) Negative (Negative) Urine Ketones Trace H (Negative) Ur Blood (Man) Negative (Negative) Urine Nitrate Negative (Negative) Urine Bilirubin 1+ H (Negative) Urine Urobilinogen 1.0 (0.2-1.0) mg/dL Leukocyte Esterase Rfl Negative (Negative) SHAYNE/UL Influenza A (RT-PCR) Negative (Negative) Influenza B (RT-PCR) Negative (Negative) RSV (RT-PCR) Negative (Negative) SARS-CoV-2 RNA (RT-PCR) Negative (Negative) Imaging Data Attestation: I personally reviewed and interpreted this imaging study as follows: Radiologist's impression: ITS Impressions Chest X-Ray 10/15/25 09:57 Impression: 1: Chronic parenchymal scarring right mid and lower lung without significant change allowing for technique. ECG Data EKG #1: Attestation: I personally reviewed and interpreted this ECG as follows: ECG completion date: 10/15/25 ECG completion time: 09:48 normal rate, sinus rhythm, no ectopy, no ST changes, normal QRS, normal QT, NL axis and no acute changes Discharge Plan Discharge Clinical Impression: Viral syndrome Patient Disposition: Home Condition: Stable Instructions: Viral Syndrome (ED) Additional Instructions: Please follow-up with the primary doctor in the next 1-2 weeks. Come back to the emergency room if worse symptoms. Your bilirubin levels have always been elevated but they are slightly worse at this time and need further workup as an outpatient with the primary doctor. Patient Language: Nicaraguan Prescriptions: No Action atorvastatin 40 mg Tablet 40 mg PO HS Lactobacillus acidophilus Tablet See Rx Instructions .ROUTE .COMPLEX Rx Instructions: 2 capsules daily lisinopril 40 mg Tablet 40 mg PO DAILY trazodone 50 mg tablet 50 mg PO QHS mirtazapine 7.5 mg tablet 7.5 mg PO QHS dorzolamide-timolol (PF) 2-0.5 % drops 1 drp EACH EYE BID netarsudil-latanoprost 0.02-0.005 % drops 1 drp EACH EYE QPM calcium polycarbophil 625 mg tablet 1,250 mg PO DAILY Rx Instructions: Take with 8 0z fluid. Administer 2 hours before or after other oral medications. brinzolamide-brimonidine 1-0.2 % drops,suspension 1 drp EACH EYE BID Rx Instructions: Separate administration from other eye drops by 5 minutes. metoprolol succinate 25 mg tablet extended release 24 hr See Rx Instructions .ROUTE .COMPLEX Qty: 45 1RF Dose Instruction: TAKE ONE HALF TABLET BY MOUTH ONCE DAILY. Rx Instructions: TAKE ONE HALF TABLET BY MOUTH ONCE DAILY. Follow-up/Referrals: Jp Peace DO [Primary Care Provider, [facility]] Time of Disposition: 11:29
--- OUTSIDE RECORDS SUMMARY | 2025-10-15 09:35 | XMS_ITS ---
Author Organization [facility] Address [address] [place] [address] Care Team Providers Care Kitchen Worker Name Role Phone Angelika Garcia MD Primary Care Provider [phone] Talib Lombardo MD Unavailable Aleisha Roman MD Unavailable [phone] Active Problems Problem Noted Date Diagnosed Date Malignant neoplasm of lung 01/26/2023 Overview (01/26/2023): Added automatically from request for surgery [id number] Primary cancer of right upper lobe of [...]
--- OUTSIDE RECORDS SUMMARY | 2025-10-15 09:35 | XMS_ITS | Patient Health Record ---
Author Organization [facility] Address [facility] [facility] [facility] [address] [facility] [address] [place] [address] Care Team Providers Care Civil Drafting Technician Name Role Phone Wilson Delacruz Unavailable [phone] Reason For Referral No Information Medications Medication SIG (Take, Route, Frequency, Duration) Notes Start Date End Date Status Furosemide 40 MG Tablet Oral 11/22/2021 Active buPROPion HCl ER (SR) 100 MG Tablet Extended Release 12 Hour Oral 11/22/2021 Active oxyBUTYnin Chloride ER 10 MG Tablet Extended Release 24 Hour Oral 11/22/2021 Active Social History Social History Additional Details Category Social Info Options Details Migrated Social History Migrated Social History Alcohol Intake: Occasional 11/22/2021,Tobacco Years: Former smoker 11/22/2021,Smoking Status: 20 11/22/2021 Plan Of Treatment No Information Insurance Providers Payer Name Payer Address Payer Phone Subscriber Number Group Number Insured Name Patient Relationship to Insured Coverage Start Date Coverage End Date [facility] Medicare Replacement/ Advantage - Ppo [address] [address] [place] [address] [id number] ARMINJAMAR [id number] POPEYE Self - patient is the insured [facility] [address] [address] [place] [address] [id number] POPEYE DAVIS Self - patient is the insured Medical (General) History Surgical History Surgery Date(Month/Year) Tonsillectomy (194194650) Lung excision ([id number])
--- OUTSIDE RECORDS SUMMARY | 2025-10-15 09:35 | XMS_ITS | Encounter Summary ---
Author Organization [facility] Address [facility] [place] [address] Care Team Providers Care Clay Stain Mixer Name Role Phone None, Provider Primary Care Provider Angelika Kee MD Primary Care Provider [phone] Km Matute MD Primary Care Provider Colt Ha MD Unavailable [phone] Encounter Details Date Type Department Care Team (Latest Contact Info) Description 08/21/2018 Abstract [facility] Medical Group Traci Yanez MD [...] CDT COVID-19 Confirmed 08/11/2024 08/11/2024 12:32 AM EXHAUST MACHINE OPERATOR documented as of this encounter Care Teams Clay Stain Mixer Relationship Specialty Start Date End Date None, ProviderMD PCP - General 06/19/19 07/03/19 Angelika Garcia MD [address] [place] [address] PCP - General FAMILY PRACTICE 07/04/19 01/20/22 Km Matute MD [address] [facility] [place] [id number] PCP - General FAMILY PRACTICE 01/21/22 Colt Ha MD [address] [address] Consulting Physician CARDIOVASCULAR DISEASE 01/21/22 documented as of this encounter
--- OUTSIDE RECORDS SUMMARY | 2025-10-15 09:35 | XMS_ITS | Clinical Summary ---
Author Organization [facility] Address [address] [place] [address] Care Team Providers Care Electronics Engineering Professor Name Role Phone Km aMtute MD Primary Care Provider Colt Ha MD Unavailable [phone] Allergies Active Allergy Reactions Criticality Noted [...] NEBULIZER DEVICE, DME,Indications:A cute bacterial bronchitis,COPD exacerbation ([facility]) Take 1 Device by nebulization daily. Use [...] in adult 08/16/2024 COPD with acute exacerbation 07/27/2023 Dyspnea on exertion 09/02/2022 Essential (primary) hypertension 03/03/2022 Hyperlipidemia, unspecified hyperlipidemia type 03/03/2022 Malignant neoplasm of lung, unspecified laterality, unspecified part of lung 03/03/2022 H/O prostate cancer 03/03/2022 Primary osteoarthritis of right shoulder 020 Chronic obstructive pulmonary disease 01/14/2014 Resolved Problems Problem Noted Date Diagnosed Date Resolved Date COVID-19 08/17/2024 08/23/2024 Encounter for preventive health examination 01/10/2014 06/26/2020 Immunizations Immunization Administration Dates Next Due Fluzone (IIV3, Trivalent, 0.5 ML Prefilled Syrin ) 08/23/2024 Influenza Adult (Generic) 08/08/2018 Zoster (Zostavax) 63419 Unt/0.65Ml 03/20/2013 Family History Medical History Relation Comments No Known Problems Father No Known Problems Mother Heart Disease Sister Relation Status Comments Father Mother Sister Social History Tobacco Use Types Packs/Day Years Used Date Smoking Tobacco: Never Smokeless Tobacco: Never Alcohol Use Standard Drinks/Week Comments No 0 (1 standard drink = 0.6 oz pur e alcohol) [facility] Utilities Answer Date Recorded In the past 12 months has th e electric, gas, oil, or water company threatened to shut off services in your [...] place to sleep or slept in a fci (including now)? No 07/27/2023 Housing Stability Vital Sign Answer Isaiah e Recorded In the last 12 months, was t here a time when you were not able to pay the mortgage or rent on time? No 08/16/2024 In the past 12 months, how m any times have you moved where you were living? 1 08/16/2024 At any time in the past 12 m [facility], were you homeless or living in a fci (including now)? No 08/16/2024 Sex and Gender [...] Comments Blood Pressure 133/63 08/23/2024 8:05 AM MILITARY PAY TECHNICIAN Pulse 92 08/23/2024 8:05 AM MILITARY PAY TECHNICIAN Temperature 35.4 C (95.7 F) 08/23/2024 8:05 AM MILITARY PAY TECHNICIAN Respiratory Rate 18 08/23/2024 8:05 AM MILITARY PAY TECHNICIAN Oxygen Saturation 100% 08/23/2024 8:05 AM MILITARY PAY TECHNICIAN Inhaled Oxygen Concentration - - Weight 57.6 kg (127 lb) 08/21/2024 6:02 AM MILITARY PAY TECHNICIAN Height 170.2 cm (5' 7) 08/16/2024 6:05 PM CDT Body Mass Index 19.89 08/16/2024 6:05 PM CDT Plan of Treatment Health Maintenance Due Date Last Done Comments Annual Medicare Wellness Visit 02/18/2009 RSV Immunization or 60+ Years (1 - 1-dose 75+ series) 02/18/2019 COVID-19 Vaccine ( season) 2025 08/13/2021, 01/22/2021, 12/23/2020 Influenza Adult (#1) 2025 08/23/2024, 08/16/2021, 07/17/2019, Additional history exists DTaP, Tdap and Td Vaccines (4 - Td or Tdap) 12/13/2032 12/13/2022, 2013, 04/24/2008 Pneumococcal Vaccine: 50+ Years Completed 07/31/2015, 09/10/2013 Zoster Vaccines Completed 07/01/2019, 12/14, 03/20/2013 Hepatitis A Vaccines Aged Out No long er eligible based on patient's age to complete this topic Meningococcal B Vaccine Aged Out No l onger eligible based on patient's age to complete this topic Meningococcal Vaccine Aged Out No felipe sarwat eligible based on patient's age to complete this topic RSV Immunizations Under 20 Months Aged Out No longer eligible based on patient's age to complete this topic Insurance [facility] MEDICARE Advance Directives * Full Code (Latest Code Status on File) Date Activated Date Inactivated Comments 08/16/2024 5:51 PM 08/23/2024 3:30 PM * Full Code Date Activated Date Inactivated Comments 07/27/2023 3:58 PM 07/29/2023 1:50 PM Care Teams Electronics Engineering Professor Relationship Specialty Start Date End Date Km Matute MD [address] [facility] [address] [place] [phone] PCP - General FAMILY PRACTICE 01/21/22 Colt Ha MD 3 [facility] [address] [place] [phone] Consulting Physician CARDIOVASCULAR DISEASE 01/21/22
--- OUTSIDE RECORDS SUMMARY | 2025-10-15 09:35 | XMS_ITS | Clinical Summary ---
Author Organization [facility] Address [address] [place] [address] Care Team Providers Care Precision Grinder Name Role Phone Angelika Garcia MD Primary Care Provider [phone] Talib Lombardo MD Unavailable [phone] Aleisha Roman MD Unavailable [phone] Allergies Active Allergy Reactions Criticality Noted Date [...] mg total) by mouth daily Active omega 8-azi-ack-fish oil 1,000 mg (120 mg-180 mg) capsule [...] (01/26/2023): Added automatically from request for surgery [id number] Primary cancer of right upper lobe of [...] on file Legal Sex Male 4:[address] JUSTICE Gender Identity Not on file Sexual Orientation [...] Zoster Vaccine Completed 07/01/2019, 12/14, 03/20/2013 Insurance [facility] MEDICARE ADVANTAGE COMMERCIAL GENERIC R [facility] MEDICARE ADVANTAGE MEDICARE [facility] MEDICARE ADVANTAGE COMMERCIAL GENERIC Care Teams Precision Grinder Relationship Specialty Start Date End Date Angelika Garcia MD [address] [place] [address] PCP - General Family Medicine 08/20/20 Talib Lombarod MD [address] [place] [address] [address] [place] [address] PCP - Hematology/Oncology Medical Oncology 11/09/21 Aleisha Roman MD [address] [place] [address] [address] [place] [address] Medical Oncologist/Professional System Administrator Hematology and Oncology 11/09/21
--- NOTE | 2025-10-15 09:42 | ECG_ITS ---
Test Date: 2025-10-15 09:47:06 Measurements Intervals Ringle Rate: 83 P: 54 GA: 158 QRS: 63 QRSD: 96 T: 28 QT: 352 QTc: 415 Interpretive Statements SINUS RHYTHM MINIMAL Q WAVES- INF/LAT LEADS BORDERLINE ST ABNORMALITY- INFERIOR LEADS BORDERLINE ECG Compared to ECG 07/11/2024 01:25:53 HEART RATE HAS INCREASED Electronically Signed On 10-15-2025 10:32:30 SALES STOCK ASSOCIATE by Merrick Schilling D.O.
[2025-10-15 09:50] VITALS: O2SAT 99
[2025-10-15 10:15] LABS: Hematocrit 40.8 % (37.0-46.0); Hemoglobin 13.5 g/dL (12.4-15.3); Immature Granulocyte Percent A 0.2 % (0.0-0.0); Lymphocytes Absolute Auto 0.92 K/mm3 (1.10-4.50); Mean Corpuscular HGB Conc 33.1 g/dL (32-36); Mean Corpuscular Hemoglobin 28.4 pg (27.0-31.0); Mean Corpuscular Volume 85.9 fL (78.0-102.0); Nucleated Red Blood Cells Absolute Auto 0.00 K/mm3 (0.00-0.00); Nucleated Red Blood Cells Perc 0.0 % (0-0.0); Platelet Count Result 145 K/mm3 (150-420); Red Blood Count 4.75 M/mm3 (4.70-6.10); White Blood Count 9.0 K/mm3 (4.8-10.8)
--- OUTSIDE RECORDS SUMMARY | 2025-10-15 10:24 | XMS_ITS | Clinical Summary ---
Author Organization [facility] Address [address] [place] [address] Care Team Providers Care Individual Small Group Instructor Name Role Phone Km Matute MD Primary Care Provider Colt Ha MD Unavailable [phone] Allergies Active Allergy Reactions Criticality Noted [...] DEVICE, DME,Indications:A cute bacterial bronchitis,COPD exacerbation ([facility]/HCC HHS/HCC) Take 1 Device by nebulization daily. [...] 08/23/2024 Influenza Adult (Generic) 08/08/2018 Zoster (Zostavax) 61738 Unt/0.65Ml 03/20/2013 Family History Medical History Relation Comments No Known Problems Father No Known Problems Mother Heart Disease Sister Relation Status Comments Father Mother Sister Social History Tobacco Use Types Packs/Day Years Used Date Smoking Tobacco: Never Smokeless Tobacco: Never Alcohol Use Standard Drinks/Week Comments No 0 (1 standard drink = 0.6 oz pur e alcohol) [facility] Utilities Answer Date Recorded In the [...] place to sleep or slept in a detention (including now)? No 07/27/2023 Housing Stability Vital Sign Answer Isaiah e Recorded In the last 12 months, was t here a time when you were not able to pay the mortgage or rent on time? No 08/16/2024 In the past 12 months, how m any times have you moved where you were living? 1 08/16/2024 At any time in the past 12 m [place] [place], were you homeless or living in a detention (including now)? No 08/16/2024 Sex and Gender [...] Comments Blood Pressure 133/63 08/23/2024 8:05 AM VOLLEYBALL COMMENTATOR Pulse 92 08/23/2024 8:05 AM VOLLEYBALL COMMENTATOR Temperature 35.4 C (95.7 F) 08/23/2024 8:05 AM VOLLEYBALL COMMENTATOR Respiratory Rate 18 08/23/2024 8:05 AM VOLLEYBALL COMMENTATOR Oxygen Saturation 100% 08/23/2024 8:05 AM VOLLEYBALL COMMENTATOR Inhaled Oxygen Concentration - - Weight 57.6 kg (127 lb) 08/21/2024 6:02 AM VOLLEYBALL COMMENTATOR Height 170.2 cm (5' 7) 08/16/2024 6:05 [...] patient's age to complete this topic Insurance [facility] MEDICARE Advance Directives * Full Code (Latest Code Status on File) Date Activated Date Inactivated Comments 08/16/2024 5:51 PM 08/23/2024 3:30 PM * Full Code Date Activated Date Inactivated Comments 07/27/2023 3:58 PM 07/29/2023 1:50 PM Care Teams Individual Small Group Instructor Relationship Specialty Start Date End Date Km Matute MD [address] [place] [id number] PCP - General FAMILY PRACTICE 01/21/22 Colt Ha MD [address] [facility] [address] [place] [id number] Consulting Physician CARDIOVASCULAR DISEASE 01/21/22
--- OUTSIDE RECORDS SUMMARY | 2025-10-15 10:24 | XMS_ITS ---
Author Organization [facility] Address [address] [place] [address] Care Team Providers Care Product Line Manager Name Role Phone Angelika Garcia MD Primary Care Provider [phone] Talib Lombardo MD Unavailable Aleisha Roman MD Unavailable [phone] Active Problems Problem Noted Date Diagnosed Date Malignant neoplasm of lung 01/26/2023 Overview (01/26/2023): Added automatically from request for surgery [id number] Primary cancer of right upper lobe of [...]
--- OUTSIDE RECORDS SUMMARY | 2025-10-15 10:24 | XMS_ITS | Encounter Summary ---
Author Organization [facility] Address [facility] [place] [address] Care Team Providers Care Bankruptcy Legal Assistant Name Role Phone None, Provider Primary Care Provider Angelika Kee MD Primary Care Provider [phone] Km Matute MD Primary Care Provider Colt Ha MD Unavailable [phone] Encounter Details Date Type Department Care Team (Latest Contact Info) Description 08/21/2018 Abstract [facility] Traci Yanez MD Social History [...] CDT COVID-19 Confirmed 08/11/2024 08/11/2024 12:32 AM RESIDENTIAL INSTALLER documented as of this encounter Care Teams Bankruptcy Legal Assistant Relationship Specialty Start Date End Date None, ProviderMD PCP - General 06/19/19 07/03/19 Angelika Garcia MD [address] [place] [address] PCP - General FAMILY PRACTICE 07/04/19 01/20/22 Km Matute MD [address] [place] [id number] PCP - General FAMILY PRACTICE 01/21/22 Colt Ha MD [address] [address] Consulting Physician CARDIOVASCULAR DISEASE 01/21/22 documented as of this encounter
--- OUTSIDE RECORDS SUMMARY | 2025-10-15 10:24 | XMS_ITS | Clinical Summary ---
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 Gender Identity Not on file Sexual Orientation [...] Zoster Vaccine Completed 07/01/2019, 12/14, 03/20/2013 Insurance [facility] MEDICARE ADVANTAGE COMMERCIAL GENERIC R [facility] MEDICARE ADVANTAGE MEDICARE [facility] MEDICARE ADVANTAGE COMMERCIAL GENERIC Care Teams Case Picker Relationship Specialty Start Date End Date Angelika Garcia MD [address] [place] [address] PCP - General Family Medicine 08/20/20 Talib Lombardo MD [address] [place] [address] [address] [place] [id number] PCP - Hematology/Oncology Medical Oncology 11/09/21 Aleisha Roman MD [address] [place] [address] [address]ONN[address] RO[address]ERO [address] [place] [id number] Medical Oncologist/Peoplesoft Developer Hematology and Oncology 11/09/21
[2025-10-15 10:28] LABS: Alanine Aminotransferase 19 U/L (6-50); Albumin Level 4.6 g/dL (3.5-5.1); Alkaline Phosphatase 90 U/L (38-126); Anion Gap 12 mmol/L (4-12); Aspartate Amino Transferase 29 U/L (17-59); Bilirubin,Total 2.8 mg/dL (0.2-1.3); Blood Urea Nitrogen 22 mg/dL (9-20); Calcium 9.2 mg/dL (8.4-10.2); Carbon Dioxide 27 mmol/L (22-30); Chloride 110 mmol/L (98-107); Estimated CRCL calculation 35 ml/min; Estimated Glomerular Filt Rate 57; Glucose 105 mg/dL (65-110); Osmolality Calculated 311 mOsm/kg (285-295); Potassium 3.8 mmol/L (3.4-5.0); Sodium 149 mmol/L (137-145); Total Protein 8.0 g/dL (6.3-8.2)
[2025-10-15 10:48] LABS: NT Pro B Type Natriuretic Pept 364 pg/mL (19.9-100); Troponin I < 0.012 ng/mL (0.000-0.034)
[2025-10-15 11:11] LABS: Add Urine Microscopic? YES; Appearance Urine Clear (Clear); Glucose Urine UA Negative (Negative); Leukocyte Esterase Ur Negative LEU/UL (Negative); Nitrate Urine Negative (Negative); Specific Grav Ur 1.025 (1.010-1.020)
[2025-10-15 11:21] LABS: Influenza A QL RT-PCR Negative (Negative); Influenza B QL RT-PCR Negative (Negative); RSV RNA, RT-PCR Negative (Negative); SARS-CoV-2 RNA PCR Negative (Negative)
[2025-10-15 11:38] VITALS: BP 149/45; PULSE 88; RESP 20; TEMP 36.7; O2SAT 100
--- NOTE | 2025-10-18 15:22 | PC.NURSE ---
PRELIMINARY BLOOD CULTURE REPORT; NO GROWTH IN 24 HOURS.
--- NOTE | 2025-10-19 12:54 | PC.NURSE ---
PRELIMINARY BLOOD CULTURE REPORT; NO GROWTH IN 48 HOURS.
== END 2025-10-15 11:38 | disposition home or self-care (01) ==
PROVIDERS: Emergency Provider Emergency Medicine; PCP Family Medicine
DX: B34.9 Viral infection, unspecified (principal); I10 Essential (primary) hypertension; J44.9 Chronic obstructive pulmonary disease, unspecified; Z87.891 Personal history of nicotine dependence; Z20.822 Contact with and (suspected) exposure to COVID-19
CPT/HCPCS: 36415; 71045; 80053; 81001; 83605; 83880; 84484; 85025; 87637; 93005; 99284